=== PATIENT | male | born 1955 | race Hispanic/Latino ===

== ENCOUNTER 2017-08-23 12:17 | Emergency (ER) | payer OTHER ==
[2017-08-23 13:11] LABS: Absolute Lymphocytes (CBC) 1.7 K/uL (0.7-4.9); Absolute Monocytes 0.8 K/uL (0.1-1.3); Absolute Neutrophil 6.3 K/uL (1.8-8.0); Basophils % 0.8 % (0-1.3); Eosinophils % 0.4 % (0-4.4); Hematocrit 42.4 % (39.6-49.0); Lymphocytes % 19.1 % (15.3-44.8); MCH 30.8 pg (27.0-35.0); MCV 92.2 fL (80-100); Monocytes % 9.4 % (3.3-12.3); RBC Red Blood Cell Count 4.59 M/uL (4.33-5.43)
[2017-08-23 13:22] LABS: Potassium 3.2 mEq/L (3.6-5.0)
[2017-08-23 13:29] LABS: Albumin 4.5 g/dL (3.2-5.5); Bilirubin Direct 0.1 mg/dL (0-0.2); Bilirubin Total 0.7 mg/dL (0.3-1.2); Protein, Total 7.6 g/dL (6.0-8.3)
[2017-08-23 13:43] LABS: Protime INR 1.08
--- NOTE | 2017-08-23 14:29 | RAD REPORT ---
EXAM DESCRIPTION: RAD - Chest Single View - 08/23/2017 2:18 pm CLINICAL HISTORY: Chest pain. COMPARISON: 10/07/2015 FINDINGS: Portable technique limits examination quality. The lungs are grossly clear. The heart is normal in size. No displaced fractures. IMPRESSION: No acute intrathoracic process suspected.
--- NOTE | 2017-08-23 15:37 | EKG ---
Test Date: 2017-08-23 Test Time: 12:28:13 Video And Sound Recorder: ALANNAH MEASUREMENT RESULTS: Intervals: Rate: 112 AL: 134 QRSD: 72 QT: 316 QTc: 431 [place]: P: 47 AL: 134 QRS: -19 T: 52 INTERPRETIVE STATEMENTS: Sinus tachycardia Otherwise normal ECG Compared to ECG 10/07/2015 20:35:54 Sinus rhythm no longer present Electronically Signed On 08-23-17 15:36:56 CDT by Octavio Pearson
--- NOTE | 2017-08-23 16:29 | EDPHYS ---
Physician Documentation [facility] Name: Edilberto Zamorano Age: 61 yrs Sex: Male : 1955 Arrival Date: 08/23/2017 Time: 12:28 Bed 23 Private MD: ED Physician Ravinder Wang Historical: - Allergies: 08/23 12:35 No Known Allergies; ae1 - Home Meds: 12:35 hydrocodone-acetaminophen 10-325 mg Oral tab [Active]; Cymbalta Oral [Active]; Tramadol ae1 Oral [Active]; Lyrica Oral [Active]; unknown shizophrenia medication for sleep [Active]; unknown BP medication [Active]; Xanax Oral [Active]; - PMHx: 12:35 Back pain; Depression; Hyperlipidemia; Hypertension; ae1 - Immunization history:: Adult Immunizations not up to date. - Social history:: Smoking status: Patient uses tobacco products, smokes one-half pack cigarettes per day. Exam: 15:42 ECG was reviewed by the Attending Physician. Vital Signs: 12:32 BP 131 / 90; Pulse 117; Resp 25; Temp 98.4(O); Pulse Ox 96% on R/A; Weight 69.85 kg ae1 (R); Pain 7/10; 13:00 BP 123 / 78; Pulse 96; Resp 16; Pulse Ox 97% ; jl7 13:30 BP 124 / 77; Pulse 89; Resp 16; Pulse Ox 97% ; jl7 14:17 BP 127 / 77; Pulse 102; Resp 18; Pulse Ox 96% on R/A; aj1 15:24 BP 134 / 82; Pulse 87; Resp 16; Pulse Ox 97% on R/A; mb3 MDM: 12:53 Patient medically screened. 08/23 12:54 Order name: Basic Metabolic Panel; Complete Time: 14:05 08/23 12:54 Order name: CBC with Diff; Complete Time: 14:05 08/23 12:54 Order name: CPK; Complete Time: 14:05 08/23 12:54 Order name: LFT's; Complete Time: 14:05 08/23 12:54 Order name: Magnesium; Complete Time: 14:05 08/23 12:54 Order name: PT-INR; Complete Time: 14:05 08/23 12:54 Order name: Troponin (emerg Dept Use Only); Complete Time: 14:05 08/23 12:54 Order name: XRAY Chest (1 view); Complete Time: 16:27 08/23 12:54 Order name: EKG; Complete Time: 12:55 08/23 12:54 Order name: Cardiac monitoring; Complete Time: 12:58 08/23 12:54 Order name: EKG - Nurse/Tech; Complete Time: 12:58 08/23 12:54 Order name: IV Saline Lock; Complete Time: 12:58 08/23 12:54 Order name: Labs collected and sent; Complete Time: 12:58 08/23 14:16 Order name: Troponin (emerg Dept Use Only); Complete Time: 16:27 08/23 12:54 Order name: O2 Per Protocol; Complete Time: 12:58 08/23 12:54 Order name: O2 Sat Monitoring; Complete Time: 12:58 08/23 12:54 Order name: Urine Dipstick-Ancillary (obtain specimen) EC:42 Rate is 113 beats/min. Rhythm is regular, Sinus tachycardia. WA interval is normal. QRS gs interval is normal. T waves are Normal. No ST changes noted. Clinical impression: Abnormal EKG without significant change. Interpreted by me. Administered Medications: No medications were administered Disposition: 08/23/17 16:29 Discharged to Home. Impression: Chest pain, unspecified. - Condition is Stable. - Discharge Instructions: Nonspecific Chest Pain. - Medication Reconciliation Form, Thank You Letter, Antibiotic Education, Prescription Opioid Use form. - Follow up: Private Physician; When: 2 - 3 days; Reason: Re-evaluation by your physician. Follow up: Octavio Pearson MD; When: 2 - 3 days; Reason: Re-evaluation by your physician. - Problem is new. - Symptoms are resolved. Addendum: 08/29/2017 22:05 Addendum: CC: Chest Pain HPI: onset couple of days intermittent no pattern dull pain g s not SOB, very depressed not suicidal. Spouse recently . no reliving factors no associated signs or symptoms. PMH-reviewed Sohx: lives at home ROS- all reviewed and negative PE VS-reviewed and stale Gen no distress, non toxic Head_ normal no injury Eyes_ Piter EOMI ENT-mouth ears nl Neck-supple no masses CV-rrr no murmur P- clear breath sounds B/L normal work of breathing GI- soft nontender no mass MS- no deformity no pain Skin no breakdown no rash neuro - no acute changes psych- depressed flat affect not suicidal homocidal MDM DDX - ns chest pain, cad, pneumonia Pain resolved 2 trops negative will dc for followed. Signatures: Dispatcher [employer] EDHaja Slade, RN RN ae1 Ravinder Wang MD MD gs Javier Romo RN RN mb3 Corrections: (The following items were deleted from the chart) 08/23 16:47 16:29 08/23/2017 16:29 Discharged to Home. Impression: Chest pain, unspecified. mb3 Condition is Stable. Forms are Medication Reconciliation Form, Thank You Letter, Antibiotic Education, Prescription Opioid Use. Follow up: Private Physician; When: 2 - 3 days; Reason: Re-evaluation by your physician. Follow up: Octavio Pearson; When: 2 - 3 days; Reason: Re-evaluation by your physician. Problem is new. Symptoms are resolved.
--- NOTE | 2017-08-23 16:29 | ER ---
Nurse's Notes [facility] Name: Edilberto Zamorano Age: 61 yrs Sex: Male : 1955 Arrival Date: 08/23/2017 Time: 12:28 Bed 23 Private MD: Diagnosis: Chest pain, unspecified Presentation: 08/23 12:28 Presenting complaint: EMS states: EMS states patient has been c/o chest pain for "a ae1 couple of days". Patient states his last week. Patient reports midsternal chest pain 10/15, EMS administered 324 mg aspirin and 0.4 mg Nitroglycerin with small decrease in pain reported by patient. Transition of care: patient was not received from another setting of care. Onset of symptoms was August 21, 2017. Initial Sepsis Screen: Does the patient meet any 2 criteria? RR > 20 per min. HR > 90 bpm. Does the patient have a suspected source of infection? No. Patient's initial sepsis screen is negative. Care prior to arrival: Medication(s) given: ASA, 81 mg, x 4, Nitroglycerin, 0.4 mg SL IV initiated. 20 GA, in the left forearm. 12:28 Method Of Arrival: EMS: [facility] ae1 12:28 Acuity: JUSTYN 2 ae1 Historical: - Allergies: 12:35 No Known Allergies; ae1 - Home Meds: 12:35 hydrocodone-acetaminophen 10-325 mg Oral tab [Active]; Cymbalta Oral [Active]; Tramadol ae1 Oral [Active]; Lyrica Oral [Active]; unknown shizophrenia medication for sleep [Active]; unknown BP medication [Active]; Xanax Oral [Active]; - PMHx: 12:35 Back pain; Depression; Hyperlipidemia; Hypertension; ae1 - Immunization history:: Adult Immunizations not up to date. - Social history:: Smoking status: Patient uses tobacco products, smokes one-half pack cigarettes per day. Screenin:37 Abuse screen: Denies threats or abuse. Nutritional screening: No deficits noted. ae1 Tuberculosis screening: No symptoms or risk factors identified. Fall Risk None identified. Assessment: 12:36 General: Appears distressed, uncomfortable, Behavior is cooperative, anxious, crying, ae1 Patient appears emotional. . Pain: Pain radiates to thoracic area. Pain: Complains of pain in mid-sternal area Pain began gradually, 2-3 days ago. Neuro: Level of Consciousness is awake, alert, obeys commands, Patient can open eyes when asked to but keeps them closed. . Cardiovascular: Heart tones S1 S2 present Patient's skin is warm and dry. Respiratory: Airway is patent Respiratory effort is even, unlabored, Respiratory pattern is regular, symmetrical, Breath sounds are clear bilaterally. 14:17 Reassessment: Patient and/or family updated on plan of care and expected duration. Pain aj1 level reassessed. Patient is alert, oriented x 3, equal unlabored respirations, skin warm/dry/pink. Patient states that his chest pain has decreased since his arrival to the emergency room. General: Appears in no apparent distress. comfortable, Behavior is calm, cooperative. Neuro: Level of Consciousness is awake, alert, obeys commands, Oriented to person, place, time, situation, Speech is normal, Facial symmetry appears normal. Cardiovascular: Reports chest pain, Heart tones S1 S2 present Patient's skin is warm and dry. Respiratory: Airway is patent Respiratory effort is even, unlabored, Respiratory pattern is regular, symmetrical, Breath sounds are clear bilaterally. GI: No signs and/or symptoms were reported involving the gastrointestinal system. : No signs and/or symptoms were reported regarding the genitourinary system. EENT: No signs and/or symptoms were reported regarding the EENT system. Derm: No signs and/or symptoms reported regarding the dermatologic system. Skin is pink, warm \\T\\ dry. normal. Musculoskeletal: No signs and/or symptoms reported regarding the musculoskeletal system. Circulation, motion, and sensation intact. 15:25 Reassessment: Patient and/or family updated on plan of care and expected duration. Pain mb3 level reassessed. Patient is alert, oriented x 3, equal unlabored respirations, skin warm/dry/pink. Vital Signs: 12:32 BP 131 / 90; Pulse 117; Resp 25; Temp 98.4(O); Pulse Ox 96% on R/A; Weight 69.85 kg ae1 (R); Pain 7/10; 13:00 BP 123 / 78; Pulse 96; Resp 16; Pulse Ox 97% ; jl7 13:30 BP 124 / 77; Pulse 89; Resp 16; Pulse Ox 97% ; jl7 14:17 BP 127 / 77; Pulse 102; Resp 18; Pulse Ox 96% on R/A; aj1 15:24 BP 134 / 82; Pulse 87; Resp 16; Pulse Ox 97% on R/A; mb3 ED Course: 12:28 Patient arrived in ED. ae1 12:29 Ravinder Wang MD is Attending Physician. gs 12:32 Triage completed. ae1 12:33 Maintain EMS IV. Dressing intact. Good blood return noted. Site clean \\T\\ dry. Gauge \\T\\ ae 1 site: 20 Gauge left forearm. . Inserted saline lock: 18 gauge in right antecubital area, using aseptic technique. Blood collected. Patient maintains SpO2 saturation greater than 95% on room air. 12:35 Arm band placed on right wrist. EKG completed in triage. Results shown to MD. ae1 12:36 Placed in gown. Bed in low position. Call light in reach. Side rails up X2. Adult w/ ae1 patient. alarm security or surveillance monitor on. Pulse ox on. NIBP on. 12:42 EKG done, by electronics maintenance technician. reviewed by Ravinder Wang MD. 12:58 Haja Mariscal, RN is Primary Nurse. ae1 14:17 X-ray completed. Portable x-ray completed in exam room. Patient tolerated procedure mh1 well. 14:18 XRAY Chest (1 view) In Process Unspecified. EDTN 14:19 Report received from Carola Villavicencio RN. aj1 16:28 Octavio Pearson MD is Referral Physician. gs 16:42 IV discontinued, intact, bleeding controlled, No redness/swelling at site. Pressure mb3 dressing applied. 16:43 IV discontinued, intact, bleeding controlled, No redness/swelling at site. Pressure mb3 dressing applied. 16:43 No provider procedures requiring assistance completed. mb3 Administered Medications: No medications were administered Outcome: 16:29 Discharge ordered by MD. gs 16:44 Discharged to home ambulatory, with family. mb3 16:44 Condition: stable 16:44 Discharge instructions given to patient, family, Instructed on discharge instructions, follow up and referral plans. Demonstrated understanding of instructions, follow-up care. 16:47 Patient left the ED. mb3 Signatures: Dispatcher [employer] EDTN Marva Hill RN RN 1 Mendy Holt [facility] Kiki Shultz Haja Mariscal, RN RN ae1 Glenis Franklin, RN RN jl7 Ravinder Wang MD MD gs Javier Romo, MONICA RN mb3
[2017-08-23 16:51] VITALS: TEMP 98.4
[2017-08-23 16:55] VITALS: BP 134/82; O2SAT 97
== END 2017-08-23 16:47 | disposition home or self-care (01) ==
LOC: ER 12:17
DX: R07.9 Chest pain, unspecified (principal); E78.5 Hyperlipidemia, unspecified; I10 Essential (primary) hypertension; F32.9 Major depressive disorder, single episode, unspecified
CPT/HCPCS: 36415; 71045; 80048; 80076; 82550; 83735; 84484; 85025; 85610; 93005; 99285

== ENCOUNTER 2017-09-30 14:35 | Inpatient (IN) | payer OTHER ==
[2017-09-30 14:49] LABS: Absolute Lymphocytes (CBC) 1.7 K/uL (0.7-4.9); Absolute Monocytes 1.3 K/uL (0.1-1.3); Absolute Neutrophil 11.9 K/uL (1.8-8.0); Basophils % 0.4 % (0-1.3); Eosinophils % 0.9 % (0-4.4); Hematocrit 43.1 % (39.6-49.0); Lymphocytes % 11.3 % (15.3-44.8); MCH 30.9 pg (27.0-35.0); MCV 92.2 fL (80-100); MPV 10.8 fL (7.6-11.3); Monocytes % 8.4 % (3.3-12.3); RBC Red Blood Cell Count 4.67 M/uL (4.33-5.43)
[2017-09-30 14:55] LABS: Protime INR 1.13
[2017-09-30 15:02] LABS: Potassium 3.3 mmol/L (3.5-5.1)
--- NOTE | 2017-09-30 15:04 | RAD REPORT ---
EXAM DESCRIPTION: CT - Ct Stroke Brain Wo Cont - 09/30/2017 2:50 pm CLINICAL HISTORY: Confused;Slurred speech CVA COMPARISON: HEAD BRAIN W O CONTRAST dated 12/12/2013 TECHNIQUE: All CT scans are performed using dose optimization technique as appropriate and may inclu de automated exposure control or mA/KV adjustment according to patient size. FINDINGS: No intracranial hemorrhage, hydrocephalus or extra-axial fluid collection.No areas of brai n edema or evidence of midline shift. The paranasal sinuses and mastoids are clear. The calvarium is intact. IMPRESSION: No acute intracranial abnormality. The findings were discussed with ER physician Dr. Foley on 09/30/2017 at 2:40 p.m. by telephone.
[2017-09-30 15:06] LABS: Arterial Blood Carboxyhemoglob 1.6 % (0-1.5); Blood O2 Saturation 97.4 % (92-98.5)
--- NOTE | 2017-09-30 15:09 | RAD REPORT ---
EXAM DESCRIPTION: RAD - Chest Single View - 09/30/2017 2:49 pm CLINICAL HISTORY: CVA Chest pain. COMPARISON: Chest Single View dated 08/23/2017; Abdomen 1 View (KUB) dated 01/27/2016; Abdomen 1 View (KUB) dated 12/08/2015; Chest Single View dated 10/07/2015 FINDINGS: Portable technique limits examination quality. The lungs are grossly clear. The heart is normal in size. No displaced fractures. IMPRESSION: No acute intrathoracic process suspected.
--- NOTE | 2017-09-30 15:26 | EKG ---
Test Date: 2017-09-30 Test Time: 14:42:50 Radio Rigger: GUDELIA MEASUREMENT RESULTS: Intervals: Rate: 108 [place]: 144 QRSD: 84 QT: 398 QTc: 533 [place]: P: 57 [place]: 144 QRS: -4 T: 56 INTERPRETIVE STATEMENTS: Sinus tachycardia Nonspecific T wave abnormality Prolonged QT Abnormal ECG Compared to ECG 08/23/2017 12:28:13 T-wave abnormality now present Prolonged QT interval now present Electronically Signed On 09-30-17 15:25:16 CDT by Octavio Pearson
[2017-09-30 15:43] LABS: Alcohol Serum/Plasma < 3 mg/dL (0-3)
--- NOTE | 2017-09-30 16:45 | EDPHYS ---
Physician Documentation [facility] Name: Edilberto Zamorano Age: 62 yrs Sex: Male : 1955 Arrival Date: 09/30/2017 Time: 14:21 Bed 3 Private MD: ED Physician Ravinder Wang HPI: 09/30 14:23 This 62 yrs old Male presents to ER via Unassigned with complaints of S/S of gs Possible Stroke. 16:46 The patient's problem is reported as altered mental status, disoriented to place, time. gs Onset: The symptoms/episode began/occurred at an unknown time. last seen normal yest. 17:02 Duration: The episode is continuous. The symptoms are alleviated by nothing. The gs symptoms are aggravated by nothing. Associated signs and symptoms: Pertinent positives: confusion, Pertinent negatives: abdominal pain, fever. Unable to obtain HPI due to patient's speech is incomprehensible, patient's inability to understand questions. Historical: - Allergies: 14:50 No Known Allergies; sv - Home Meds: 15:40 Lyrica 300 mg Oral 2 times per day [Active]; tramadol 50 mg oral tab 1 tab every 6 sv hours [Active]; Xanax 1 mg oral tab TID prn [Active]; Protonix 40 mg Oral TbEC 1 tab once daily [Active]; duloxetine 60 mg oral cpDR 1 cap once daily [Active]; terazosin 10 mg oral cap 1 cap once daily [Active]; - PMHx: 14:50 Back pain; Depression; Hyperlipidemia; Hypertension; sv - Immunization history:: Adult Immunizations unknown. - Social history:: Smoking status: unknown. - Ebola Screening: : Unable to complete screening because patient is disoriented, . ROS: 17:02 All other systems are negative. gs Exam: 17:02 Head/Face: Normocephalic, atraumatic. Eyes: Pupils equal round and reactive to light, gs extra-ocular motions intact. Lids and lashes normal. Conjunctiva and sclera are non-icteric and not injected. Cornea within normal limits. Periorbital areas with no swelling, redness, or edema. ENT: Nares patent. No nasal discharge, no septal abnormalities noted. Tympanic membranes are normal and external auditory canals are clear. Oropharynx with no redness, swelling, or masses, exudates, or evidence of obstruction, uvula midline. Mucous membranes moist. Neck: Trachea midline, no thyromegaly or masses palpated, and no cervical lymphadenopathy. Supple, full range of motion without nuchal rigidity, or vertebral point tenderness. No Meningismus. Chest/axilla: Normal chest wall appearance and motion. Nontender with no deformity. No lesions are appreciated. 17:02 Constitutional: The patient appears awake. 17:02 Cardiovascular: Rate: tachycardic, Rhythm: regular, Pulses: no pulse deficits are appreciated. 17:02 ECG was reviewed by the Attending Physician. 17:02 Neuro: Orientation: Not oriented to place, time, situation, Cranial nerves: CN II- XII are normal as tested, Motor: moves all fours, Sensation: no acute changes. Vital Signs: 14:31 Pulse 113; Resp 24; Temp 97.0(TE); Pulse Ox 100% on R/A; Pain 0/10; ss 14:31 BP 126 / 83; ss 15:50 BP 125 / 72; Pulse 101; Resp 16; Pulse Ox 100% on 2 lpm NC; sv 16:38 BP 110 / 74; Pulse 100; Resp 16; Pulse Ox 100% on 2 lpm NC; sv 17:30 BP 117 / 73; Pulse 107; Resp 14; Pulse Ox 99% on 2 lpm NC; sv MDM: 14:25 Patient medically screened. 17:02 Differential diagnosis: CVA, TIA, metabolic disorder, drug effects. Data reviewed: vital signs, nurses notes. Response to treatment: the patient's symptoms have mildly improved after treatment, and as a result, I will admit patient. ED course: no tpa no time of onset, appears not to be a cva rather overdosage of medications filled on 09/27. 09/30 14:27 Order name: Basic Metabolic Panel; Complete Time: 15:25 09/30 14:27 Order name: CBC with Diff; Complete Time: : 09/30 14:27 Order name: Protime (+inr); Complete Time: 15:25 09/30 14:27 Order name: Urine Microscopic Only; Complete Time: 17:58 09/30 14:46 Order name: Acetaminophen; Complete Time: 17:58 09/30 14:46 Order name: ETOH Level; Complete Time: 17:58 09/30 14:22 Order name: CT Stroke Brain w/o Contrast; Complete Time: 15:25 sv 09/30 14:46 Order name: Salicylate; Complete Time: 17:58 gs 09/30 14:46 Order name: Urine Drug Screen; Complete Time: 17:58 gs 09/30 14:46 Order name: AMMONIA; Complete Time: 17:58 gs 09/30 14:46 Order name: ABG; Complete Time: 15:25 gs 09/30 14:47 Order name: glucometer results - FOR PT WITH NO ID; Complete Time: 15:25 ss 09/30 17:25 Order name: Urine Dipstick--Ancillary (enter results) bd 09/30 17:27 Order name: Urine Dipstick-Ancillary; Complete Time: 17:58 EDMS 09/30 14:27 Order name: Stroke CXR 1 View; Complete Time: 15:25 gs 09/30 14:27 Order name: EKG; Complete Time: 14:36 gs 09/30 14:27 Order name: Accucheck; Complete Time: 14:38 gs 09/30 14:27 Order name: Cardiac monitoring; Complete Time: 14:38 gs 09/30 14:27 Order name: EKG - Nurse/Tech; Complete Time: 16:46 gs 09/30 14:27 Order name: IV Saline Lock; Complete Time: 14:38 gs 09/30 14:27 Order name: Labs collected and sent; Complete Time: 14:38 gs 09/30 14:27 Order name: NPO; Complete Time: 14:38 gs 09/30 14:27 Order name: O2 Per Protocol; Complete Time: 14:38 09/30 14:27 Order name: O2 Sat Monitoring; Complete Time: 14:39 gs 09/30 14:27 Order name: Stroke Swallow Screen; Complete Time: 16:46 gs 09/30 14:27 Order name: Urine Dipstick-Ancillary (obtain specimen); Complete Time: 17:48 gs EC:02 Rate is 108 beats/min. Rhythm is regular. TN interval is normal. QRS interval is gs normal. QT interval is prolonged. T waves are Inverted. Clinical impression: NSR w/ Non-specific ST/T Changes. Interpreted by me. Administered Medications: No medications were administered Point of Care Testing: Blood Glucose: 14:30 Blood Glucose: 101 mg/dL; ss Ranges: Critical Glucose Levels:Adult <50 mg/dl or >400 mg/dl <40 mg/dl or >180 mg/dl Disposition: 09/30/17 16:44 Hospitalization ordered by Breonna Cabrera for Observation. Preliminary diagnosis are Altered mental status, unspecified, Adverse effect of other opioids. - Bed requested for Telemetry/MedSurg (observation). - Status is Observation. sv - Condition is Stable. - Problem is new. - Symptoms have improved. UTI on Admission? No Critical care time excluding procedures: 17:02 Critical care time: Bedside Care: 10 minutes, Consultation: 10 minutes, Family gs Intervention: 10 minutes. Total time: 30 minutes Signatures: Dispatcher [employer] EDMarlen Herrera RN RN sv Woody, Diana, RN RN dw Starr, Gregory, MD MD gs Corrections: (The following items were deleted from the chart) 14:50 14:50 Ebola Screening: Unable to complete screening because sv sv 17:55 16:44 Hospitalization Ordered by Breonna Cabrera MD for Observation. Preliminary diagnosis dw is Altered mental status, unspecified; Adverse effect of other opioids. Bed requested for Telemetry/MedSurg (observation). Status is Observation. Condition is Stable. Problem is new. Symptoms have improved. UTI on Admission? No. gs 17:56 17:55 09/30/2017 16:44 Hospitalization Ordered by Breonna Cabrera MD for Observation. dw Preliminary diagnosis is Altered mental status, unspecified; Adverse effect of other opioids. Bed requested for Telemetry/MedSurg (observation). Status is Observation. Condition is Stable. Problem is new. Symptoms have improved. UTI on Admission? No. dw 18:39 17:56 09/30/2017 16:44 Hospitalization Ordered by Breonna Cabrera MD for Observation. sv Preliminary diagnosis is Altered mental status, unspecified; Adverse effect of other opioids. Bed requested for Telemetry/MedSurg (observation). Status is Observation. Condition is Stable. Problem is new. Symptoms have improved. UTI on Admission? No. dw
--- NOTE | 2017-09-30 16:45 | ER ---
Nurse's Notes [facility] Name: Edilberto Zamorano Age: 62 yrs Sex: Male : 1955 Arrival Date: 09/30/2017 Time: 14:21 Bed 3 Private MD: Diagnosis: Altered mental status, unspecified;Adverse effect of other opioids Presentation: 09/30 14:15 Presenting complaint: EMS states: Slurred speech and was able to follow direction. Pt sv lives with daughter and daughter stated he was not acting himself yesterday morning. Daughter works retail shift supervisor and came home today around 1330 and pt was not acting right. BP 118/72 95% RA, BS-135, ST. NS 500 bolus and Narcan given with no change in mental status. Pt has thick secretions noted around his lips. Pn O2 \T\ 2L per NC. Transition of care: patient was not received from another setting of care. No acute neurological deficit is noted. The patients blood glucose was checked before arriving to the hospital and was found to be normal. Onset of symptoms is unknown. Care prior to arrival: None. 14:15 Method Of Arrival: EMS: [facility] sv 14:15 Acuity: JUSTYN 2 sv 14:30 Risk Assessment: Do you want to hurt yourself or someone else? Other: Pt agitated and sv yelling at staff at this time. 14:49 Initial Sepsis Screen: Does the patient meet any 2 criteria? RR > 20 per min. Altered sv Mental Status. HR > 90 bpm. Yes Does the patient have a suspected source of infection? No. Patient's initial sepsis screen is negative. Triage Assessment: 14:16 The onset of the patients symptoms was at an unknown time. General: Appears sv uncomfortable, Behavior is agitated, Pt starts yelling after a question is asked and appears to be agitated.. Pain: Unable to use pain scale. Does not appear to understand pain scale. Patient appears agitated, confused. Respiratory: Respiratory effort is even, unlabored, Respiratory pattern is regular, symmetrical. GI: Abdomen is round non-distended. Derm: Skin is normal. Musculoskeletal: Range of motion: intact in all extremities. Stroke Activation: Symptom onset > 6 hours Physician: Stroke Attending; Name: ; Notified At: 14:14; Arrived At: Physician: Chief Stroke Resident; Name: ; Notified At: 14:14; Arrived At: Physician: Stroke Resident; Name: ; Notified At: 14:14; Arrived At: Physician: ED Attending; Name: Dr Wang; Notified At: 14:14; Arrived At: 14:40 Physician: ED Resident; Name: ; Notified At: 14:14; Arrived At: Historical: - Allergies: 14:50 No Known Allergies; sv - Home Meds: 15:40 Lyrica 300 mg Oral 2 times per day [Active]; tramadol 50 mg oral tab 1 tab every 6 sv hours [Active]; Xanax 1 mg oral tab TID prn [Active]; Protonix 40 mg Oral TbEC 1 tab once daily [Active]; duloxetine 60 mg oral cpDR 1 cap once daily [Active]; terazosin 10 mg oral cap 1 cap once daily [Active]; - PMHx: 14:50 Back pain; Depression; Hyperlipidemia; Hypertension; sv - Immunization history:: Adult Immunizations unknown. - Social history:: Smoking status: unknown. - Ebola Screening: : Unable to complete screening because patient is disoriented, . Screenin:51 Abuse screen: Denies threats or abuse. Denies injuries from another. Nutritional sv screening: No deficits noted. Tuberculosis screening: No symptoms or risk factors identified. Fall Risk No fall in past 12 months (0 pts). Secondary diagnosis (15 points) AMS. IV access (20 points). Ambulatory Aid- None/Bed Rest/Nurse Assist (0 pts). Gait- Impaired (20 pts.). Mental Status- Overestimates/Forgets Limitations (15 pts.). Total Son Fall Scale indicates High Risk Score (45 or more points). Fall prevention measures have been instituted. Side Rails Up X 2 Placed Close to Nursing Station Frequent Obs/Assessments Occuring As available patient and family educated on Fall Prevention Program and Strategies. Assessment: 14:26 Reassessment: back from CT VIA stretcher. ss 14:30 Reassessment: Unable to do NIH scale. Pt not cooperative and agitated and yells at sv staff. 14:53 Patient has been NPO before screening. The patient is not alert and/or unable to follow sv commands. Bedside swallow screen discontinued. Patient kept NPO until cleared by Speech Therapy or Physician. The patient exhibits slurred or garbled speech. Provider notified of the indication for Speech Therapy consult. The patient failed the bedside swallow screening. The patient will be kept NPO until cleared by Speech Therapy or Physician. Provider notified of bedside swallow screening results: Ravinder Wang MD. 14:56 Reassessment: Gayla CUETO at bedside to obtain ABG. sv 15:00 Reassessment: Patient appears in no apparent distress at this time. No changes from sv previously documented assessment. 15:41 Reassessment: Pt's daughter and son are here at bedside and brought pt's prescription sv bottles. Pt just had Tramadol 50 mg filled on 09/27/17, quantity 150 and there are 49 pills in the bottle. Pt also had Xanax 1 mg filled on 09/27/17, quantity 90 and there are 30 pills in the bottle. Pills were counted in front of daughter and son and given back to the daughter and informed if they are to leave to take the pill bottles home with them. Daughter stated that he's had a suicide attempt over 20 years ago when his sister was murdered. Pt recently had his pass away about a month ago. Son also stated that there is a son-in-law that they are unsure if he's been taking the pt's prescription medications as well. 16:39 Reassessment: Patient appears in no apparent distress at this time. No changes from sv previously documented assessment. Pt appears to be resting with eyes closed. Family at the bedside. Respiratory: Respiratory effort is even, unlabored, Respiratory pattern is regular, symmetrical. 18:07 Reassessment: Nurse to call back for report. sv 18:10 Reassessment: Patient appears in no apparent distress at this time. No changes from sv previously documented assessment. Vital Signs: 14:31 Pulse 113; Resp 24; Temp 97.0(TE); Pulse Ox 100% on R/A; Pain 0/10; ss 14:31 BP 126 / 83; ss 15:50 BP 125 / 72; Pulse 101; Resp 16; Pulse Ox 100% on 2 lpm NC; sv 16:38 BP 110 / 74; Pulse 100; Resp 16; Pulse Ox 100% on 2 lpm NC; sv 17:30 BP 117 / 73; Pulse 107; Resp 14; Pulse Ox 99% on 2 lpm NC; sv ED Course: 14:15 Maintain EMS IV. Dressing intact. Good blood return noted. Site clean \T\ dry. Gauge \T\ sv site: 20G L AC. 14:[address] via stretcher. sv 14:21 Patient arrived in ED. sv 14:22 Marlen Vasquez RN is Primary Nurse. sv 14:23 Ravinder Wang MD is Attending Physician. gs 14:28 Patient moved back from CT. sv 14:39 Initial lab(s) drawn, by me, sent to lab. sv 14:47 EKG done, by hearing aid technician. reviewed by Ravinder Wang MD. sm3 14:49 Triage completed. sv 14:50 Stroke CXR 1 View In Process Unspecified. EDMS 14:50 CT Stroke Brain w/o Contrast In Process Unspecified. EDMS 14:50 Arm band placed on left wrist. sv 14:51 Patient has correct armband on for positive identification. Placed in gown. Bed in low sv position. Side rails up X2. residential monitor on. Pulse ox on. NIBP on. Door closed. Head of bed elevated. 16:43 Breonna Cabrera MD is Hospitalizing Provider. gs 17:47 Urine Dipstick--Ancillary (enter results) Sent. sv 18:29 No provider procedures requiring assistance completed. Patient admitted, IV remains in sv place. intact. Administered Medications: No medications were administered Point of Care Testing: Blood Glucose: 14:30 Blood Glucose: 101 mg/dL; Ranges: Outcome: 16:44 Decision to Hospitalize by Provider. gs 18:29 Admitted to Tele accompanied by tech, family with patient, via stretcher, room 201, sv with oxygen, with chart, Report called to Polo ANDERSON 18:29 Condition: stable 18:29 Instructed on the need for admit. 18:39 Patient left the ED. sv Signatures: Dispatcher [employer] EDMS Marlen Vasquez RN RN Treasure Gonzalez RN RN Ravinder Wang MD MD Jessika Conley 3 Corrections: (The following items were deleted from the chart) 14:50 14:50 Ebola Screening: Unable to complete screening because sv sv
[2017-09-30 17:27] LABS: Urine Blood NEGATIVE (NEG); Urine Glucose NEGATIVE (NEG); Urine Protein 1+ (NEG); Urine Specific Gravity >1.030 (1.005-1.030); Urine pH 5.5 (5.0-7.0)
[2017-09-30 17:31] LABS: Urine RBC NONE SEEN /HPF (NONE SEEN)
[2017-09-30 17:32] LABS: Urine Amorphous Sediment 2+ /HPF (NONE SEEN); Urine Bacteria 20-50 /HPF (NONE SEEN); Urine Culture Reflex Order REFLEXED
[2017-09-30 17:44] LABS: Barbiturates NEGATIVE (NEGATIVE); Benzodiazepines POSITIVE (NEGATIVE); Cocaine NEGATIVE (NEGATIVE); METHAMPHETAM NEGATIVE (NEGATIVE); Methadone NEGATIVE (NEGATIVE); Opiates NEGATIVE (NEGATIVE); Phencyclidine POSITIVE (NEGATIVE); THC Cannibis NEGATIVE (NEGATIVE)
[2017-09-30] MEDS: D5.45NS W/KCL 20MEQ 1,000 ML IV SCH (19:52)
[2017-09-30] MEDS: CEFTRIAXONE/SWI 1gm 1 GM/10 ML SYR IVP SCH (19:53)
[2017-09-30] MEDS: ENOXAPARIN 40 MG/0.4 ML SQ SCH (19:53)
[2017-09-30] MEDS: FAMOTIDINE 20 MG/2 ML VIAL IV SCH (19:53)
--- NOTE | 2017-09-30 20:50 | RAD REPORT ---
EXAM DESCRIPTION: MRI - Brain W/Wo Cont - 09/30/2017 8:40 pm CLINICAL HISTORY: Acute stroke COMPARISON: Ct Stroke Brain Wo Cont dated 09/30/2017 TECHNIQUE: Multi-sequence, multiplanar MR imaging of the brain was performed with contrast. FINDINGS: No intracranial hemorrhage, hydrocephalus, extra-axial fluid collection or acute infarctio n.No edema or shift of midline structures. No intracranial mass. DWI is negative for acute CVA. The midline structures are normally formed. Mastoid air cells and paranasal sinuses are clear. Post-contrast images show no abnormal enhancement to suggest tumor or infection. IMPRESSION: Negative for acute CVA or other acute intracranial abnormality. No pathologic post-contrast enhancement suspected.
[2017-10-01] MEDS: D5.45NS W/KCL 20MEQ 1,000 ML IV SCH ×4 (04:00→23:07)
[2017-10-01 05:21] LABS: Absolute Lymphocytes (CBC) 2.1 K/uL (0.7-4.9); Absolute Monocytes 1.1 K/uL (0.1-1.3); Absolute Neutrophil 7.4 K/uL (1.8-8.0); Basophils % 1.3 % (0-1.3); Eosinophils % 2.5 % (0-4.4); Hematocrit 40.8 % (39.6-49.0); Lymphocytes % 19.3 % (15.3-44.8); MCH 30.6 pg (27.0-35.0); MCV 94.7 fL (80-100); MPV 11.3 fL (7.6-11.3); RBC Red Blood Cell Count 4.31 M/uL (4.33-5.43)
--- NOTE | 2017-10-01 05:39 | HP ---
Date of Admission: 09/30/2017 Primary Care Physician: Da Amaya PA-C. Chief Complaint: Altered mental status. Code Status: Full. History Of Present Illness: The patient is a 62-year-old male with past medical history of depressio n, generalized anxiety disorder, gastroesophageal reflux disease and benign prostatic hyperplasia, wh o has been through some family difficulties given recent of his daughter and his in the [place] few months. The patient's daughter last year and in August. The patien t has been depressed according to the family members, daughter, 1 daughter who does stay with him; saqib palacios, works and is not always there. He was last known to be in his usual state of health on Saturd ay night, just 2 nights prior to admission. The patient was not awake and outside of his room this m orning when the daughter returned from [place] fishing hand. When she checked on her father, the patient was somnolent, not really responsive. His speech was slurred. It was not making much sense. He was not really able to get up and was weak. The patient's daughter therefore called EMS and the patient was brought into the ER for further evaluation. His symptoms are constant, moderate and progressively w orsening. Of note, the patient has been taking benzodiazepines, alprazolam, and it was noted that hi s pill bottle was missing, over 30 pills from the day before. The patient also is on tramadol and easley d 150 pills in that bottle and more than 20 were missing from that bottle as well. The patient has b een somnolent and in the ER his workup revealed potassium of 3.3. His white count was 15.1. His amm onia level was low. His UA, however, was positive and UDS was positive for phencyclidine and benzodi azepine. Tylenol level was less than 2. Alcohol level was also less than 3. CT scan of the brain d id not show any acute abnormalities. The patient was then referred for admission for altered mental status. When seen in the ER, the patient was asleep, but arousable, not able to participate in histo ry taking, so the history is taken from family members, previous records and ER staff physician. Past Medical History: Gastroesophageal reflux disease, generalized anxiety disorder, major depressiv e disorder, chronic back pain, hyperlipidemia, hypertension. Past Surgical History: Unknown. Social History: The patient has smoked in the past. No use of alcohol or illicit drug use. The pat butch recently lost his and lost his daughter about a year ago. The patient is independent in hi s activities of daily living. Lives at home with his other daughter. Allergies: NO KNOWN DRUG ALLERGIES. Medications: Reviewed. Family History: No history of premature coronary artery disease in the family. Review of Systems: An 11-point system limited due to the patient's medical condition. Physical Examination: Vital signs: Pulse 113, respirations 24, temperature 97, O2 100% on room air, blood pressure 126/83. General: Asleep, but arousable, confused. HEENT: Normocephalic, atraumatic. PERRLA. EOMI. Dry mucous membranes. Oropharynx is clear. Conju nctiva is anicteric. Neck: Supple. No JVD. Trachea midline. CV: S1, S2. No murmurs. Regular rate and rhythm. Peripheral pulses present. Respiratory: Moving air well bilaterally. No wheezing. No stridor. No use of accessory muscles. Gastrointestinal: Abdomen is soft, nontender, nondistended. Positive bowel sounds. No guarding or rigidity. Extremities: No clubbing, cyanosis or edema. No calf tenderness. Neurologic: Unable to properly assess due to patient's medical condition; however, he moves all 4 ex tremities. Opens eyes to name. Speech is incomprehensible. Skin: No rashes. Normal skin turgor. Psych: Deferred. Laboratory Data: UDS positive for phencyclidine and benzodiazepine. Tylenol level less than 2. UA negative nitrite, negative leukocyte esterase, WBC 5-10, 20-50 urine bacteria. Sodium 139, potassium 3.3, chloride 107, CO2 27, BUN 20, creatinine 1.2, glucose 109, calcium 8.7, ammonia 14. ABG; pH 7. 43, pCO2 37.8, pO2 93, bicarb 24.6, INR 1.13. WBC 15.1, H and H 14.4 and 43.1, platelets 194, neutro phils 79%. CT scan of the brain shows no acute intracranial abnormality. Chest x-ray shows no acute intrathorac ic process suspected, personally reviewed. EKG shows rate of 108, sinus tachycardia. Nonspecific T- wave abnormality, prolonged QT. Assessment And Plan: A 62-year-old male with, 1.Acute metabolic encephalopathy, likely related to drug overdose, doubt cerebrovascular accident. Head CT scan is negative. The patient has multiple pills missing. We will monitor closely. Neuro c hecks. 2.Drug overdose, unclear if this is intentional or unintentional. We will monitor closely. Neuro c hecks. We will place on pulse ox, continuous pulse ox. 3.Urinary tract infection, acute cystitis without hematuria. We will start on IV antibiotics and ob tain urine culture. 4.Hypokalemia. We will replace and monitor. 5.Essential hypertension. 6.Hyperlipidemia. 7.Benign prostatic hyperplasia, we will resume home medication. 8.Generalized anxiety disorder, we will hold benzodiazepines for now. 9.Major depressive disorder, on SSRI. 10.Gastroesophageal reflux disease without esophagitis. Continue PPI. 11.Gastrointestinal and deep venous thrombosis prophylaxis with PPI and Lovenox. Plan: Admit the patient to Med-Surg, place for observation. May need psych referral. FRANCA Voice ID: [id number]
[2017-10-01] MEDS ORDERED: NA CHLORIDE 0.9% 1,000 ML IV ONE (05:43)
[2017-10-01 05:49] LABS: Bilirubin Total 0.3 mg/dL (0.2-1.0); Potassium 3.6 mmol/L (3.5-5.1); Protein, Total 6.2 g/dL (6.4-8.2)
[2017-10-01] MEDS: ASPIRIN EC 81 MG TAB PO SCH (08:33)
[2017-10-01] MEDS: ENOXAPARIN 40 MG/0.4 ML SQ SCH (08:33)
[2017-10-01] MEDS: CEFTRIAXONE/SWI 1gm 1 GM/10 ML SYR IVP SCH (08:33)
[2017-10-01] MEDS: FAMOTIDINE 20 MG/2 ML VIAL IV SCH ×2 (08:33→20:09)
--- NOTE | 2017-10-01 17:51 | PN ---
Date of Progress Note: 10/01/2017 Subjective: The patient seen and examined, chart reviewed and case discussed with RN. The patient i s still very much lethargic. There is some history of previous suicide attempt with medications, the refore will be placed on suicide precautions. Family at the bedside treatment plan explained. All q uestions answered. Review of Systems: Unable to be obtained due to the patient's medical condition. Medications: Reviewed Objective: Vital Signs: Temperature 97, heart rate 95, blood pressure 118/61, respirations 17, and O2 saturation 99% on room air. General: Asleep, but arousable, in some mild distress, confused male. CV: S1, S2. No murmurs. Regular rate and rhythm. Peripheral pulses present. Respiratory: Clear to auscultation bilaterally. No wheezing. No stridor. No use of accessory musc les Gastrointestinal: Abdomen is soft, nontender, nondistended. Positive bowel sounds. Extremities: No clubbing, cyanosis, edema. Neuro: Moves all 4 extremities. Opens eyes spontaneously. Does not follow commands. Laboratory Data: Sodium 140, potassium 3.6, chloride 108, CO2 28, BUN 17, creatinine 0.9, glucose 12 1, calcium 8.5, AST 127, ALT 46, and albumin 3. WBC 11, H and H 13.2, 40.8, platelets 169, and neutr ophils 56%. Urine culture, no growth. Blood cultures are pending. MRI brain shows negative for acu te CVA or other acute intracranial abnormality. Assessment And Plan: A 62-year-old male with; 1.Acute metabolic encephalopathy, likely related to drug overdose. MRI brain negative for cerebrova scular accident. Neurology has been consulted. EEG will be ordered. 2.Drug overdose, possibly intentional. We will place on suicide precautions and have sitter at the bedside. 3.Urinary tract infection, acute cystitis without hematuria. The patient is on Rocephin. Urine cul tures so far shows no growth. 4.Hypokalemia. We will replace and monitor. 5.Essential hypertension, stable. 6.Hyperlipidemia, mixed. 7.Benign prostatic hypertrophy. The patient did have some obstructive uropathy. Catheter has been placed. The patient is not safe to swallow pills, therefore, his tamsulosin is on hold. 8.Generalized anxiety disorder. Hold benzodiazepine. 9.Major depressive disorder, on SSRI. 10.Gastroesophageal reflux disease without esophagitis. Continue IV PPI. 11.Gastrointestinal and deep venous thrombosis prophylaxis with PPI and Lovenox. Plan: Follow up with neuro eval and recommendations. If continues to have altered mentation, may ne ed to have NG-tube placed tomorrow for initiating nutrition. SA/MODL Voice ID: [id number] Report ID: [id number]
[2017-10-01 19:51] VITALS: BMI 25.0
[2017-10-01] MEDS: ONDANSETRON 4 MG/2 ML VIAL IV PRN (20:50)
[2017-10-01] MEDS ORDERED: THIAMINE 200 MG/2 ML INJ IVP ONE (21:00)
--- NOTE | 2017-10-02 02:01 | CON ---
Reason: Altered mental status. History: A 62-year-old gentleman with history of depression, reflux. The patient is depressed and h is daughter and within the last year. He was found to be confused with empty bottle/pills missing from bottles. At his home, drug screen positive for PCP and benzodiazepines. White count in the emergency room 15,000. He was admitted for evaluation and stabilization since being admitted. Brain MRI, no evidence for stroke. EEG does demonstrate some occasional right focal slowing. The pa tient is improving. He is waking up currently. He is still confused but arousable and can follow si mple one-step commands. Consultation was requested. Past Medical History: As alluded to. Medications: Currently aspirin, ceftriaxone, Lovenox, Zofran, and famotidine. Allergies: NONE. Social History: The patient lives with family. Normally independent with basic activities of daily living. He is on antidepressants normally chronically. Review of Systems: As alluded to. Not properly obtainable from the patient. Physical Examination: Vital Signs: 98.7, 111, 16, 125/83. General: Somnolent gentleman lying in bed, arousable to verbal as well as tactile stimuli. HEENT: Pupils reactive. Does have some nystagmus on lateral gaze, but ocular motion is full. Field s are full to threat. Face is symmetric. Neck: Supple. Extremities: He moves all extremities to painful stimuli. Reflexes are 2/4. Toes are bilaterally d owngoing. Pertinent Laboratory Data: White count 11, hemoglobin 13, platelets normal. Renal function normal. Glucose 121. Drug screen positive PCP and benzodiazepines. Impression: Drug overdose, possible suicide attempt. Plan: Add IV thiamine. Continue general supportive care. We will need to evaluate for the possibil ity of suicide attempt when the patient is little more coherent. Thank you for the consult. We will continue to follow. OSEI/IRVIN Voice ID: [id number] Report ID: [id number]
[2017-10-02 05:26] LABS: Absolute Lymphocytes (CBC) 1.7 K/uL (0.7-4.9); Absolute Monocytes 1.2 K/uL (0.1-1.3); Absolute Neutrophil 7.6 K/uL (1.8-8.0); Basophils % 0.6 % (0-1.3); Eosinophils % 2.3 % (0-4.4); Hematocrit 37.5 % (39.6-49.0); MCV 93.7 fL (80-100); MPV 11.2 fL (7.6-11.3); Monocytes % 10.9 % (3.3-12.3)
[2017-10-02 05:48] LABS: Albumin 2.9 g/dL (3.4-5.0); Bilirubin Total 0.4 mg/dL (0.2-1.0); Potassium 3.3 mmol/L (3.5-5.1); Protein, Total 6.2 g/dL (6.4-8.2)
[2017-10-02] MEDS: KCL 20 MEQ/100 mL IVPB 20 MEQ/100 ML BAG IV SCH ×4 (06:21→22:10)
[2017-10-02] MEDS: ASPIRIN EC 81 MG TAB PO SCH (09:00)
[2017-10-02] MEDS: CEFTRIAXONE/SWI 1gm 1 GM/10 ML SYR IVP SCH (09:00)
[2017-10-02] MEDS: THIAMINE 200 MG/2 ML INJ IVP SCH (09:15)
[2017-10-02] MEDS: FAMOTIDINE 20 MG/2 ML VIAL IV SCH (09:16)
[2017-10-02] MEDS: ENOXAPARIN 40 MG/0.4 ML SQ SCH (09:16)
--- NOTE | 2017-10-02 09:49 | EEG ---
CHART: [id number] TEST ID#: [id number] DATE OF STUDY: 10/01/2017 THE EEG WAS RECORDED PORTABLE IN THE PATIENTS ROOM ON A 17 CHANNEL MACHINE. ELECTRODES WERE APPLIED IN THE USUAL MANNER USING THE INTERNATIONAL 10-20 SYSTEM. THE WAKING BACKGROUND RHYTHM IN THIS RECORD CONSISTS OF POORLY DEVELOPED AND POORLY ORGANIZED WAVES OF 8 HZ., MAXIMAL IN THE POSTERIOR HEAD REGIONS WHICH ATTENUATE NORMALLY WITH EYE OPENING. OCCASIONAL MODERATE AMPLITUDE SLOW WAVES OF 3-4 HZ ARE NOTED ON THE RIGHT, MAXIMAL IN THE TEMPORAL OCCIPITAL REGION. NO EPILEPTIFORM ACTIVITY APPEARS. SLEEP DID NOT OCCUR. HYPERVENTILATION WAS NOT PERFORMED. PHOTIC STIMULATION PRODUCED POOR DRIVING BILATERALLY. IMPRESSION: ABNORMAL EEG BECAUSE OF OCCASIONAL RIGHT FOCAL SLOWING. THE ABOVE SUGGESTS FOCAL PATHOLOGY/ DYSFUCTION ON THE RIGHT. FURTHER STUDIES TO EVALUATE THE RIGHT HEMISPHERE ARE SUGGESTED CLINICALLY INDICATED.
[2017-10-02] MEDS: D5.45NS W/KCL 20MEQ 1,000 ML IV SCH (10:00)
[2017-10-02] MEDS ORDERED: TERAZOSIN HCL 5 MG CAP PO SCH (14:00)
[2017-10-02] MEDS: PANTOPRAZOLE 40MG TABLET PO SCH (14:00)
--- NOTE | 2017-10-02 14:43 | PN ---
Date of Progress Note: 10/02/2017 Subjective: The patient is seen and examined. Chart reviewed and case discussed with RN and Dr. Hyacinth pedroza. The patient much more awake and alert today, following commands, answering questions appropriate ly. Son at the bedside. The patient not responding to questions regarding intentional overdose of m edications. He does admit to being depressed. Review of Systems: Negative except as above. Medications: Reviewed. Physical Examination: Vital Signs: Temperature 98.9, heart rate 118, blood pressure 129/65, respirations 18, O2 94% on chin m air. General: Awake, alert, oriented x3. Some mild distress. CV: S1, S2. Sinus tachycardia. No murmurs. Peripheral pulses present. Respiratory: Clear to auscultation bilaterally. No wheezing. Gastrointestinal: Abdomen is soft, nontender, nondistended. Positive bowel sounds. Extremities: No clubbing, cyanosis, or edema. Neurologic: Nonfocal. Psych: Mood is depressed. Affect is congruent with mood. Insight and judgment are poor. Laboratory Data: Sodium 140, potassium 3.3, chloride 106, CO2 25, BUN 8, creatinine 0.9, glucose 91, calcium 8.3. AST 110, ALT 45, albumin 2.9. WBC 10.9, H and H 12.4 and 37.5, platelets 162. Blood cultures, no growth to date. Urine culture shows no growth. Assessment And Plan: A 62-year-old male with: 1.Acute metabolic encephalopathy, likely related to drug overdose. Cerebrovascular accident ruled o ut with MRI. Appreciate Dr. Adorno's input. EEG was performed, shows abnormal EEG because of occasio nal right focal slowing, focal pathology dysfunction on the right. 2.Drug overdose, likely intentional. The patient has had previous history of drug overdose. Stephania ruiz on suicide precautions. We will obtain [facility] evaluation. Continue sitter at the bedside. 3.Hypokalemia. We will replace and monitor. 4.Urinary tract infection, acute cystitis without hematuria. The patient was treated with Rocephin. Urine culture shows no growth. We will discontinue antibiotics. 5.Essential hypertension, stable. 6.Benign prostatic hypertrophy with obstructive uropathy. Catheter is in place. We will continue t amsulosin. 7.Hyperlipidemia, mixed. 8.Essential hypertension, stable. 9.Generalized anxiety disorder. We will hold benzodiazepines. 10.Major depressive disorder, on SSRI. 11.Gastroesophageal reflux disease without esophagitis. Continue PPI. 12.Gastrointestinal and deep venous thrombosis prophylaxis with PPI and Lovenox. Plan: Bedside swallow screening. We will initiate diet, replace potassium. The patient will need a voiding trial prior to discharge and Lynn catheter to be removed. [facility] evaluation in the next 24 h ours for possible inpatient psych placement. /IRVIN Voice ID: [id number] Report ID: [id number]
[2017-10-02] MEDS ORDERED: HALOPERIDOL LACT 5 MG/ML INJ IV PRN (16:25)
[2017-10-02] MEDS ORDERED: DIPHENHYDRAMINE 50 MG/ML VIAL IV ONE (17:00)
[2017-10-02] MEDS: ACETAMINOPHEN 500 MG TAB PO PRN (19:53)
[2017-10-02] MEDS ORDERED: RANITIDINE 150 MG TABLET PO SCH (21:00)
[2017-10-03] MEDS: D5.45NS W/KCL 20MEQ 1,000 ML IV SCH ×2 (01:28→01:29)
[2017-10-03] MEDS: ONDANSETRON 4 MG/2 ML VIAL IV PRN (02:57)
[2017-10-03 03:09] LABS: ALT/SGPT 43 U/L (12-78); AST/SGOT 78 U/L (15-37); Albumin 2.9 g/dL (3.4-5.0); Alkaline Phosphatase 90 U/L (45-117); BUN Blood Urea Nitrogen 4 mg/dL (7-18); Bicarbonate 26 mmol/L (21-32); Bilirubin Total 0.5 mg/dL (0.2-1.0); Glucose Level 116 mg/dL (74-106); Potassium 3.6 mmol/L (3.5-5.1); Protein, Total 6.3 g/dL (6.4-8.2); Sodium Level 141 mmol/L (136-145)
[2017-10-03] MEDS: ACETAMINOPHEN 500 MG TAB PO PRN ×2 (03:11→11:04)
[2017-10-03] MEDS ORDERED: KCL 20 MEQ/100 mL IVPB 20 MEQ/100 ML BAG IV SCH (04:00)
--- NOTE | 2017-10-03 07:28 | RAD REPORT ---
EXAM DESCRIPTION: ESTEVAN Rolle CP - 10/02/2017 10:06 pm CLINICAL HISTORY: Transient alteration of awareness. Bruit COMPARISON: December 2013 TECHNIQUE: Real-time sonographic evaluation of both carotid systems was performed. Grayscale and dup apolonia Doppler interrogation was performed with waveform tracing bilaterally. FINDINGS: Normal high resistance waveforms are noted in both external carotid arteries. The common c arotid arteries and internal carotid arteries show normal low resistance waveforms. A small focal calcified plaque is present in the left carotid bulb. No significant luminal narrowing. Peak systolic and end diastolic velocity values and the ICA/CCA ratios are in the non-hemodynamicall y significant range. Common carotid peak systolic velocity was 71 cm/seconds on the right and 73 cm/s econd on the left. ICA velocities range from 51-68 cm/second on the right and 60-73 cm/second on the left. End-diastolic velocity values were normal range. ICA/CCA ratios were 0.9 on the right and 1.0 o n the left. Antegrade flow seen in both vertebral arteries. Velocity values and ratios were recorded and are retained in the patient's imaging records. IMPRESSION: No significant atherosclerotic changes noted. No evidence of a hemodynamically significant stenosis.
[2017-10-03] MEDS: ENOXAPARIN 40 MG/0.4 ML SQ SCH (08:00)
[2017-10-03] MEDS: PANTOPRAZOLE 40MG TABLET PO SCH (08:01)
[2017-10-03] MEDS: ASPIRIN EC 81 MG TAB PO SCH (08:01)
[2017-10-03] MEDS: THIAMINE 200 MG/2 ML INJ IVP SCH (08:02)
[2017-10-03] MEDS ORDERED: HALOPERIDOL LACT 5 MG/ML INJ IV PRN (08:26)
[2017-10-03 08:49] VITALS: O2SAT 97
[2017-10-03] MEDS ORDERED: TERAZOSIN HCL 5 MG CAP PO SCH (09:00)
--- NOTE | 2017-10-03 11:04 | PN ---
Date of Progress Note: 10/03/2017 Subjective: The patient is seen and examined. Chart reviewed and case discussed with RN. The patie nt now is awake and alert. Has been somewhat combative yesterday, thinking to leave; however, has ri sk of self-harm and needs to be transferred to inpatient psych facility. Son at the bedside. The ricardo schwartz's Lynn catheter removed today; however, still has not voided. He has not ate much of his meal s. Review of Systems: Negative except as above. Medications: Reviewed. Physical Examination: Vital Signs: Temperature 97.2, heart rate 108, blood pressure 114/59, respirations 16, O2 94% on chin m air. General: Awake, alert, or oriented x3, not in any acute distress. CV: S1, S2. Sinus tachycardia. No murmurs. Peripheral pulses present. Respiratory: Clear to auscultation bilaterally. No wheezing. Gastrointestinal: Abdomen is soft, nontender, nondistended. Positive bowel sounds. Extremities: No clubbing, cyanosis, edema. Neurologic: Nonfocal. Psych: Mood is dysphoric. Affect is congruent with mood. Insight and judgment are poor. Laboratory Data: Sodium 141, potassium 3.6, chloride 106, CO2 26, BUN 4, creatinine 0.8, glucose 116 , calcium 8.7. AST 78, ALT 43, and albumin 2.9. WBC 10.9, H and H 12.4 and 37.5, platelets 162, tom trophils 70%. Carotid artery ultrasound shows no significant atherosclerotic changes noted. No evid ence of hemodynamically significant stenosis. Assessment And Plan: A 62-year-old male with: 1.Acute metabolic encephalopathy, resolved. Cerebrovascular accident ruled out. Appreciate Dr. Hyacinth pedroza's input. 2.Intentional drug overdose. The patient is at high risk for self-harm, [facility]. 3.Hypokalemia, replace. Continue to monitor. 4.Urinary tract infection, acute cystitis without hematuria. Urine culture showed no growth. Antib iotics were discontinued. 5.Essential hypertension, stable. 6.Benign prostatic hypertrophy with obstructive uropathy. Catheter has been removed. We will do a voiding trial. Continue tamsulosin. 7.Hyperlipidemia, mixed. 8.Essential cerebrovascular accident. 9.Generalized anxiety disorder. Benzodiazepine has been on hold. 10.Major depressive disorder. The patient is suicidal. 11.Gastroesophageal reflux disease without esophagitis. We will continue PPI. 12.Gastrointestinal and deep venous thrombosis prophylaxis with PPI and Lovenox. Plan: Discharge to inpatient psych facility once accepted. FRANCA Voice ID: [id number] Report ID: [id number]
[2017-10-03 12:24] VITALS: BP 113/61; TEMP 98.1
--- NOTE | 2017-10-04 02:33 | DS ---
Date of Discharge: 10/03/2017 Consultants: Dr. Adorno with Neurology. Discharge Diagnoses: 1.Acute metabolic encephalopathy secondary to drug overdose, resolved. 2.Intentional drug overdose with benzodiazepine, PCP, possibly tramadol, being referred to inpatient psychiatric facility for suicidal ideation. 3.Suicidal ideation and attempt. 4.Hypokalemia, replaced. 5.Urinary tract infection, acute cystitis without hematuria. Urine culture no growth. 6.Essential hypertension, stable. 7.Benign prostatic hyperplasia with obstructive uropathy, improved with tamsulosin. The patient abl e to tolerate voiding trial. 8.Hyperlipidemia, stable. 9.Generalized anxiety disorder. 10.Major depressive disorder. 11.Gastroesophageal reflux disease without esophagitis. Hospital Course: The patient is a 62-year-old male who came in with altered mental status. He torrey frank had taken overdose of his medications including benzodiazepines and his UDS was positive for P CP. The patient was worked up for possible CVA and MRI was done which was negative. CT head was als o negative. Dr. Adorno with Neurology was consulted. EEG was done, which showed some slowing on the right side. The patient eventually started waking up on the second day of admission. He was then fo und to have high risk for self-harm as this was his second suicide attempt due to depression. The pa tiejustin had recently lost his daughter and now his about a month ago. Carotid ultrasound was also done, which was negative for any hemodynamically significant stenosis. He did have some mild hypoka lemia, which was replaced. He had an elevated white count and equivocal UA with 20-50 bacteria, 5-10 WBCs, but negative nitrite and leukocyte esterase. He was given Rocephin initially. However, once the urine culture showed no growth, antibiotics were discontinued. He did have some mild elevation i n his liver enzymes, likely due to fatty liver disease. His white count normalized. He was then mor e awake and alert. His mental status cleared. He was then referred to inpatient psychiatric facilit y for involuntary transfer due to his risk for self-harm. The patient was accepted by inpatient [facility] facility and was transferred. The patient's Lynn catheter was removed and a voiding trial was don e and he was able to void on his own. He does have some benign prostatic hyperplasia and he will be continued on his tamsulosin. Discharge Condition: Fair. Activity: As tolerated. Medications: As per medication reconciliation list. Followup: With psychiatrist at the inpatient psychiatric facility. Return to ER for worsening condi tion. Follow up with PCP in 1-2 weeks. Medications: As per medication reconciliation list. Diet: Heart healthy. Total time spent discharging the patient was 39 minutes. Physical Examination: General: Awake, alert, oriented, no acute distress. CV: S1, S2. No murmurs. Respiratory: Moving air well bilaterally. No wheezing. Abdomen: Soft, nontender, nondistended. Positive bowel sounds. Extremities: No clubbing, cyanosis, edema. Neuro: Nonfocal. Psych: Dysphoric mood. Affect is congruent with mood, insight and judgment are poor. SA/MODL Voice ID: [id number] Report ID: [id number]
== END 2017-10-03 13:18 | DRG 917 ==
LOC: ER 14:35 → ERHOLD 16:57 → 2ND 18:29 → OBSVTOIN 10-02 14:14
PROVIDERS: ADMIT Family Medicine; ATTEND Family Medicine
DX: T42.4X2A Poisoning by benzodiazepines, intentional self-harm, initial encounter (principal); G92 Toxic encephalopathy; N30.00 Acute cystitis without hematuria; N13.8 Other obstructive and reflux uropathy; Y92.009 Unspecified place in unspecified non-institutional (private) residence as the place of occurrence of the external cause; E87.6 Hypokalemia; I10 Essential (primary) hypertension; N40.1 Benign prostatic hyperplasia with lower urinary tract symptoms; E78.5 Hyperlipidemia, unspecified; F41.8 Other specified anxiety disorders; K21.9 Gastro-esophageal reflux disease without esophagitis
CPT/HCPCS: 36415; 70450; 70553; 71045; 80048; 80053; 80061; 80307; 80320; 80329; 81003; 81015; 82140; 82805; 82962; 83605; 83735; 84132; 85025; 85610; 87040; 87086; 87088; 93005; 93880; 94760; 94762; 95819; 99285; A9579; G0378; J0696; J1630; J1650; J2405; J3411; J7030

== ENCOUNTER 2018-06-10 12:36 | Emergency (ER) | payer OTHER ==
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
--- NOTE | 2018-06-10 14:33 | RAD REPORT ---
EXAM DESCRIPTION: RAD - Foot Left 3 View - 06/10/2018 2:04 pm CLINICAL HISTORY: Left Foot pain FINDINGS: No fracture or dislocation is seen. The bones are osteoporotic
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
[2018-06-10] MEDS ORDERED: ACETAMINOPHEN 500 MG TAB ONE (15:18)
[2018-06-10 15:45] VITALS: TEMP 98.4
[2018-06-10 15:47] VITALS: BP 128/81; O2SAT 99
== END 2018-06-10 15:27 | disposition home or self-care (01) ==
LOC: ER 12:36
DX: S13.4XXA Sprain of ligaments of cervical spine, initial encounter (principal); S30.1XXA Contusion of abdominal wall, initial encounter; S90.32XA Contusion of left foot, initial encounter; S90.31XA Contusion of right foot, initial encounter; V49.40XA Driver injured in collision with unspecified motor vehicles in traffic accident, initial encounter; Z88.2 Allergy status to sulfonamides; I10 Essential (primary) hypertension; E78.5 Hyperlipidemia, unspecified; F32.9 Major depressive disorder, single episode, unspecified
CPT/HCPCS: 70450; 71260; 72125; 74177; 99285; Q9967

== ENCOUNTER 2018-07-22 01:00 | Emergency (ER) | payer OTHER ==
[2018-07-22] MEDS ORDERED: NA CHLORIDE 0.9% 1,000 ML ONE (02:07)
[2018-07-22 02:23] LABS: Barbiturates NEGATIVE (NEGATIVE); Benzodiazepines POSITIVE (NEGATIVE); Cocaine NEGATIVE (NEGATIVE); METHAMPHETAM POSITIVE (NEGATIVE); Methadone NEGATIVE (NEGATIVE); Opiates NEGATIVE (NEGATIVE); Phencyclidine NEGATIVE (NEGATIVE); THC Cannibis NEGATIVE (NEGATIVE)
[2018-07-22 02:24] LABS: Absolute Lymphocytes (CBC) 2.3 K/uL (0.7-4.9); Absolute Monocytes 0.7 K/uL (0.1-1.3); Absolute Neutrophil 3.2 K/uL (1.8-8.0); Basophils % 0.9 % (0-1.3); Eosinophils % 6.4 % (0-4.4); Hematocrit 37.8 % (39.6-49.0); Lymphocytes % 34.7 % (15.3-44.8); MPV 9.3 fL (7.6-11.3); Monocytes % 10.9 % (3.3-12.3); RBC Red Blood Cell Count 4.07 M/uL (4.33-5.43)
[2018-07-22 02:26] LABS: Protime INR 0.95
[2018-07-22 03:02] LABS: ALT/SGPT 22 U/L (12-78); AST/SGOT 14 U/L (15-37); Albumin 3.6 g/dL (3.4-5.0); Alkaline Phosphatase 164 U/L (45-117); BUN Blood Urea Nitrogen 12 mg/dL (7-18); Bicarbonate 29 mmol/L (21-32); Bilirubin Direct < 0.1 mg/dL (0-0.2); Bilirubin Total 0.1 mg/dL (0.2-1.0); Glucose Level 92 mg/dL (74-106); Protein, Total 6.8 g/dL (6.4-8.2); Sodium Level 144 mmol/L (136-145)
[2018-07-22 03:48] LABS: Urine Blood NEGATIVE (NEG); Urine Glucose NEGATIVE (NEG); Urine Protein NEGATIVE (NEG); Urine pH 6.5 (5.0-7.0)
--- NOTE | 2018-07-22 05:39 | EKG ---
Test Date: 2018-07-22 Test Time: 01:17:53 Handkerchief Presser: TASHA MEASUREMENT RESULTS: Intervals: Rate: 90 DE: 174 QRSD: 88 QT: 348 QTc: 425 [place]: P: 38 DE: 174 QRS: 15 T: 71 INTERPRETIVE STATEMENTS: Normal sinus rhythm Normal ECG Compared to ECG 09/30/2017 14:42:50 Sinus tachycardia no longer present T-wave abnormality no longer present Prolonged QT interval no longer present Electronically Signed On 07-22-18 05:38:25 CDT by Octavio Pearson
--- NOTE | 2018-07-22 07:19 | ER ---
Nurse's Notes [facility] Name: Edilberto Zamorano Age: 62 yrs Sex: Male : 1955 Arrival Date: 07/22/2018 Time: 01:10 Bed 17 Private MD: Diagnosis: Altered mental status. Substance abuse Presentation: 07/22 01:11 Presenting complaint: EMS states: Pt was having difficulty sleeping so he took an extra ed1 Trazadone so his daughter called EMS because he was sleeping. Transition of care: patient was not received from another setting of care. Onset of symptoms was July 22, 2018. Risk Assessment: Do you want to hurt yourself or someone else? Patient reports no desire to harm self or others. Initial Sepsis Screen: Does the patient meet any 2 criteria? No. Patient's initial sepsis screen is negative. Does the patient have a suspected source of infection? No. Patient's initial sepsis screen is negative. Care prior to arrival: IV initiated. 18 GA, in the right antecubital area. 01:11 Method Of Arrival: EMS: [facility] ed1 01:11 Acuity: JUSTYN 2 ed1 Triage Assessment: 01:17 General: Appears in no apparent distress. Behavior is drowsy, responsive to verbal ed1 stimuli. Pain: Unable to use pain scale. Does not appear to understand pain scale. EENT: No signs and/or symptoms were reported regarding the EENT system. Neuro: Level of Consciousness is confused, lethargic. Cardiovascular: Heart tones S1 S2 present. Respiratory: Airway is patent Respiratory effort is even, unlabored, Respiratory pattern is regular, symmetrical, Breath sounds are clear bilaterally. GI: Abdomen is non-distended, Bowel sounds present X 4 quads. Abd is soft X 4 quads. Derm: Skin is intact, is healthy with good turgor, Skin is dry, Skin is normal, Skin temperature is warm. Musculoskeletal: Circulation, motion, and sensation intact. Capillary refill < 3 seconds, in bilateral fingers. toes. Historical: - Allergies: 01:17 Sulfa (Sulfonamide Antibiotics); ed1 - Home Meds: 01:33 alprazolam 1 mg Oral tab 1 tab 3 times per day [Active]; pantoprazole 40 mg oral TbEC 1 ed1 tab once daily [Active]; trazodone 100 mg Oral tab 1 tab nightly [Active]; amitriptyline 50 mg Oral tab 1 tab once daily [Active]; Lyrica 300 mg Oral 1 cap 2 times per day [Active]; tramadol 50 mg Oral tab 1 tab every 6 hours [Active]; terazosin 2 mg oral cap 1 cap once daily [Active]; - PMHx: 01:17 Back pain; Depression; Hyperlipidemia; Hypertension; ed1 - PSHx: 01:17 Unable to obtain; ed1 - Immunization history:: Adult Immunizations unknown. - Social history:: Smoking status: unknown. - Ebola Screening: : Unable to complete screening because patient is disoriented, . Screenin:21 Abuse screen: Denies threats or abuse. Denies injuries from another. Nutritional ed1 screening: No deficits noted. Tuberculosis screening: No symptoms or risk factors identified. Fall Risk None identified. Assessment: 01:21 General: See triage assessment. ed1 03:04 Reassessment: Patient appears in no apparent distress at this time. No changes from ed1 previously documented assessment. Patient and/or family updated on plan of care and expected duration. Pain level reassessed. Contact info for daughter July [phone]. 04:07 Reassessment: Patient appears in no apparent distress at this time. No changes from ed1 previously documented assessment. Patient and/or family updated on plan of care and expected duration. Pain level reassessed. 05:02 Reassessment: Patient appears in no apparent distress at this time. No changes from ed1 previously documented assessment. Patient and/or family updated on plan of care and expected duration. Pain level reassessed. Respiratory: Airway is patent Respiratory effort is even, unlabored, Respiratory pattern is regular, symmetrical. 06:02 Reassessment: Patient appears in no apparent distress at this time. No changes from ed1 previously documented assessment. Patient and/or family updated on plan of care and expected duration. Pain level reassessed. 07:05 Reassessment: Patient appears in no apparent distress at this time. Patient and/or tw2 family updated on plan of care and expected duration. Pain level reassessed. pt appears to be sleeping at this time. 07:40 Reassessment: spoke with daughter July, she states she can be here soon as he is tw2 ready, instructed that pt is really still drowsy and not ready for discharge at this time. 08:56 Reassessment: Patient appears in no apparent distress at this time. Patient and/or tw2 family updated on plan of care and expected duration. Pain level reassessed. pt easily arousable, able to communicate at this time, states "yeah she can come get me im ready to go home". 08:58 Reassessment: pts daughter called and will come get him at this time. tw2 Vital Signs: 01:17 BP 117 / 73; Pulse 88; Resp 12; Temp 96.9(TE); Pulse Ox 98% on R/A; Pain 0/10; ed1 03:04 BP 107 / 73; Pulse 88; Resp 14; Pulse Ox 96% on R/A; ed1 04:07 BP 110 / 78; Pulse 87; Resp 14; Pulse Ox 96% on R/A; Pain 0/10; ed1 05:02 BP 124 / 82; Pulse 87; Resp 14; Pulse Ox 97% on R/A; Pain 0/10; ed1 06:02 BP 124 / 83; Pulse 83; Resp 12; Temp 97.3(TE); Pulse Ox 97% on R/A; Pain 0/10; ed1 07:05 BP 128 / 80; Pulse 82; Resp 10; Pulse Ox 96% on R/A; tw2 08:58 BP 134 / 93; Pulse 85; Resp 12; Pulse Ox 98% on R/A; tw2 ED Course: 01:10 Patient arrived in ED. ed1 01:11 Straight cath inserted, using sterile technique, 16 Fr. Specimen obtained. Returned mt clear yellow urine. Patient tolerated well. 01:13 Triage completed. ed1 01:15 Miquel Potts MD is Attending Physician. pkl 01:17 Arm band placed on right wrist. ed1 01:21 Patient has correct armband on for positive identification. Placed in gown. Bed in low ed1 position. Call light in reach. Side rails up X2. potline monitor on. Pulse ox on. NIBP on. Warm blanket given. 01:29 Pricilla Lopez, MONICA is Primary Nurse. ed1 01:59 CT Head Brain wo Cont In Process Unspecified. EDMS 02:07 Inserted saline lock: 20 gauge in right forearm, using aseptic technique. ed1 04:07 Appears to be sleeping. ed1 05:02 Appears to be sleeping. Awaiting disposition. ed1 06:03 Appears to be sleeping. Awaiting disposition. ed1 07:00 Primary Nurse role handed off by Pricilla Lopez RN ed1 07:04 Domenica Jackson, RN is Primary Nurse. tw2 07:42 Awaiting: awaiting pts condition to change and pt to become more alert. tw2 09:26 No provider procedures requiring assistance completed. IV discontinued, intact, tw2 bleeding controlled, No redness/swelling at site. Pressure dressing applied, b/l iv discontinued. Administered Medications: 02:07 Drug: NS 0.9% 1000 ml Route: IV; Rate: 125 ml/hr; Site: right forearm; ed1 Outcome: 07:18 Discharge ordered by . pkl 09:26 Patient left the ED. tw2 09:26 Discharged to home via wheelchair, with family. tw2 09:26 Condition: stable 09:26 Discharge instructions given to patient, family, Instructed on discharge instructions, follow up and referral plans. Demonstrated understanding of instructions, follow-up care. Signatures: Dispatcher [employer] EDMS Miquel Potts MD MD pkPricilla Lou, RN RN ed1 Domenica Jackson, MONICA RN tw2 Vera Walters wi Corrections: (The following items were deleted from the chart) 01:33 01:17 Home Meds: Unable to obtain; ed1 ed1
--- NOTE | 2018-07-22 07:19 | EDPHYS ---
Physician Documentation [facility] Name: Edilberto Zamorano Age: 62 yrs Sex: Male : 1955 Arrival Date: 07/22/2018 Time: 01:10 Bed 17 Private MD: ED Physician Miquel Potts HPI: 07/22 01:24 This 62 yrs old Male presents to ER via EMS with complaints of Drug Abuse. pkl 01:24 The patient presents with decreased mental status. Onset: The symptoms/episode pkl began/occurred just prior to arrival. Possible causes: drug overdose. Associated signs and symptoms: The patient has no apparent associated signs or symptoms. Historical: - Allergies: 01:17 Sulfa (Sulfonamide Antibiotics); ed1 - Home Meds: 01:33 alprazolam 1 mg Oral tab 1 tab 3 times per day [Active]; pantoprazole 40 mg oral TbEC 1 ed1 tab once daily [Active]; trazodone 100 mg Oral tab 1 tab nightly [Active]; amitriptyline 50 mg Oral tab 1 tab once daily [Active]; Lyrica 300 mg Oral 1 cap 2 times per day [Active]; tramadol 50 mg Oral tab 1 tab every 6 hours [Active]; terazosin 2 mg oral cap 1 cap once daily [Active]; - PMHx: 01:17 Back pain; Depression; Hyperlipidemia; Hypertension; ed1 - PSHx: 01:17 Unable to obtain; ed1 - Immunization history:: Adult Immunizations unknown. - Social history:: Smoking status: unknown. - Ebola Screening: : Unable to complete screening because patient is disoriented, . ROS: 01:24 Eyes: Negative for injury, pain, redness, and discharge, ENT: Negative for injury, pkl pain, and discharge, Neck: Negative for injury, pain, and swelling, Cardiovascular: Negative for chest pain, palpitations, and edema, Respiratory: Negative for shortness of breath, cough, wheezing, and pleuritic chest pain, Abdomen/GI: Negative for abdominal pain, nausea, vomiting, diarrhea, and constipation, Back: Negative for injury and pain, : Negative for injury, bleeding, discharge, and swelling, MS/Extremity: Negative for injury and deformity, Skin: Negative for injury, rash, and discoloration. 01:24 Neuro: Positive for altered mental status. Exam: 01:24 Head/Face: Normocephalic, atraumatic. Eyes: Pupils equal round and reactive to light, pkl extra-ocular motions intact. Lids and lashes normal. Conjunctiva and sclera are non-icteric and not injected. Cornea within normal limits. Periorbital areas with no swelling, redness, or edema. ENT: Nares patent. No nasal discharge, no septal abnormalities noted. Tympanic membranes are normal and external auditory canals are clear. Oropharynx with no redness, swelling, or masses, exudates, or evidence of obstruction, uvula midline. Mucous membranes moist. Neck: Trachea midline, no thyromegaly or masses palpated, and no cervical lymphadenopathy. Supple, full range of motion without nuchal rigidity, or vertebral point tenderness. No Meningismus. Chest/axilla: Normal chest wall appearance and motion. Nontender with no deformity. No lesions are appreciated. Cardiovascular: Regular rate and rhythm with a normal S1 and S2. No gallops, murmurs, or rubs. Normal PMI, no JVD. No pulse deficits. Respiratory: Lungs have equal breath sounds bilaterally, clear to auscultation and percussion. No rales, rhonchi or wheezes noted. No increased work of breathing, no retractions or nasal flaring. Abdomen/GI: Soft, non-tender, with normal bowel sounds. No distension or tympany. No guarding or rebound. No evidence of tenderness throughout. Back: No spinal tenderness. No costovertebral tenderness. Full range of motion. Skin: Warm, dry with normal turgor. Normal color with no rashes, no lesions, and no evidence of cellulitis. MS/ Extremity: Pulses equal, no cyanosis. Neurovascular intact. Full, normal range of motion. 01:24 Neuro: Orientation: unable to test, the patient is comatose, Mentation: responsive to voice slow to respond, Cranial nerves: grossly normal, Motor: moves all fours. Vital Signs: 01:17 BP 117 / 73; Pulse 88; Resp 12; Temp 96.9(TE); Pulse Ox 98% on R/A; Pain 0/10; ed1 03:04 BP 107 / 73; Pulse 88; Resp 14; Pulse Ox 96% on R/A; ed1 04:07 BP 110 / 78; Pulse 87; Resp 14; Pulse Ox 96% on R/A; Pain 0/10; ed1 05:02 BP 124 / 82; Pulse 87; Resp 14; Pulse Ox 97% on R/A; Pain 0/10; ed1 06:02 BP 124 / 83; Pulse 83; Resp 12; Temp 97.3(TE); Pulse Ox 97% on R/A; Pain 0/10; ed1 07:05 BP 128 / 80; Pulse 82; Resp 10; Pulse Ox 96% on R/A; tw2 08:58 BP 134 / 93; Pulse 85; Resp 12; Pulse Ox 98% on R/A; tw2 MDM: 01:16 Patient medically screened. pkl 07:15 Data reviewed: vital signs, nurses notes, lab test result(s), radiologic studies. pkl 07:18 ED course: UDS. ( Positive for Benzo and Meth. ). pkl 07/22 01:21 Order name: Acetaminophen pkl 07/22 01:21 Order name: Basic Metabolic Panel pkl 07/22 01:21 Order name: CBC with Diff pkl 07/22 01:21 Order name: ETOH Level pkl 07/22 01:21 Order name: Hepatic Function; Complete Time: 04:20 pkl 07/22 01:21 Order name: PT-INR; Complete Time: 03:03 pkl 07/22 01:21 Order name: Ptt, Activated; Complete Time: 03:03 pkl 07/22 01:21 Order name: Salicylate; Complete Time: 03:03 pkl 07/22 01:21 Order name: Urine Drug Screen; Complete Time: 03:03 pkl 07/22 01:22 Order name: Acetaminophen Level; Complete Time: 04:20 EDMS 07/22 01:22 Order name: Basic Metabolic Panel; Complete Time: 04:20 EDMS 07/22 01:22 Order name: CBC with Automated Diff; Complete Time: 03:03 EDMS 07/22 01:22 Order name: Alcohol Serum/Plasma; Complete Time: 03:03 EDMS 07/22 01:28 Order name: Urine Dipstick--Ancillary (enter results); Complete Time: 04:20 ms 07/22 01:21 Order name: EKG; Complete Time: 01:22 pkl 07/22 01:21 Order name: EKG - Nurse/Tech; Complete Time: 01:22 pkl 07/22 01:21 Order name: IV Saline Lock; Complete Time: pkl 07/22 01:21 Order name: Labs collected and sent; Complete Time: pkl 07/22 01:21 Order name: Urine Dipstick-Ancillary (obtain specimen); Complete Time: pkl 07/22 01:21 Order name: CT Head Brain wo Cont pkl 07/22 02:08 Order name: Labs - recollect needed; Complete Time: 02:09 ms Administered Medications: 02:07 Drug: NS 0.9% 1000 ml Route: IV; Rate: 125 ml/hr; Site: right forearm; ed1 Disposition: 07/22/18 07:18 Discharged to Home. Impression: Altered mental status. Substance abuse. - Condition is Stable. - Medication Reconciliation Form, Thank You Letter, Antibiotic Education, Prescription Opioid Use form. - Follow up: Private Physician; When: 1 - 2 days; Reason: Re-evaluation by your physician. - Problem is new. - Symptoms have improved. Signatures: Dispatcher [employer] EDMS Miquel Potts MD MD pkl Solis, Maria ms Riggs, Erika RN RN ed1 Domenica Jackson RN RN tw2 Corrections: (The following items were deleted from the chart) 01:33 01:17 Home Meds: Unable to obtain; ed1 ed1 09:26 07:18 07/22/2018 07:18 Discharged to Home. Impression: Altered mental status. Substance tw2 abuse. Condition is Stable. Forms are Medication Reconciliation Form, Thank You Letter, Antibiotic Education, Prescription Opioid Use. Follow up: Private Physician; When: 1 - 2 days; Reason: Re-evaluation by your physician. Problem is new. Symptoms have improved. pkl
[2018-07-22 09:40] VITALS: TEMP 97.3
[2018-07-22 09:43] VITALS: BP 134/93; O2SAT 98
--- NOTE | 2018-07-22 11:11 | RAD REPORT ---
EXAM DESCRIPTION: CT - Head Brain Wo Cont - 07/22/2018 6:07 am CLINICAL HISTORY: Altered mental status COMPARISON: None. TECHNIQUE: Axial [address] imaging of the brain. Reformatted coronal and sagittal images ob tained. This examination was performed according to our departmental dose optimization program, which include s automated exposure control, adjustment of the mA and/or kV according to patient size and/or use of iterative reconstruction technique. FINDINGS: The ventricles and extra-axial fluid spaces are normal for age. There is no intracranial h emorrhage. No mass lesion. No midline shift. No acute large territorial infarction. No hyperdense ves mimi. No edema. Normal cerebellum and vermis. Fourth ventricle is midline. Prepontine cisterns are not effaced. Gloria l sella contents. Normal appearance of the globes and remaining intraorbital contents. Moderate mucosal thickening thro ughout the ethmoid air cells. Mild mucosal thickening within the anterior right frontal sinus. Bilate ral middle turbinate ten bullosa. Mastoid air cells are clear bilaterally. Skull base is intact. U nremarkable calvarium. Normal scalp soft tissues. IMPRESSION: 1. No intracranial acute finding. 2. Ethmoid sinus and right frontal sinus mucosal disease. Electronically signed by: Yessica Nelson DO 07/22/2018 2:09 AM CDT Due to temporary technical issues with the PACS/Fluency reporting system, reports are being signed by the in house radiologist as a courtesy to ensure prompt reporting. The interpreting radiologist is f ully responsible for the content of the report.
== END 2018-07-22 09:26 | disposition home or self-care (01) ==
LOC: ER 01:00
DX: F13.10 Sedative, hypnotic or anxiolytic abuse, uncomplicated (principal); F15.10 Other stimulant abuse, uncomplicated; I10 Essential (primary) hypertension; E78.5 Hyperlipidemia, unspecified; F32.9 Major depressive disorder, single episode, unspecified; Z88.2 Allergy status to sulfonamides
CPT/HCPCS: 36415; 51702; 70450; 80048; 80076; 80307; 80320; 80329; 81003; 85025; 85610; 85730; 93005; 99284; J7030

== ENCOUNTER 2018-10-15 01:50 | Emergency (ER) | payer OTHER ==
[2018-10-15 04:57] LABS: Barbiturates NEGATIVE (NEGATIVE); Benzodiazepines POSITIVE (NEGATIVE); Cocaine NEGATIVE (NEGATIVE); METHAMPHETAM NEGATIVE (NEGATIVE); Methadone NEGATIVE (NEGATIVE); Opiates NEGATIVE (NEGATIVE); Phencyclidine NEGATIVE (NEGATIVE); THC Cannibis NEGATIVE (NEGATIVE)
[2018-10-15 04:58] LABS: ALT/SGPT 48 U/L (12-78); AST/SGOT 21 U/L (15-37); Albumin 3.9 g/dL (3.4-5.0); Alkaline Phosphatase 171 U/L (45-117); BUN Blood Urea Nitrogen 8 mg/dL (7-18); Bicarbonate 27 mmol/L (21-32); Bilirubin Direct < 0.1 mg/dL (0-0.2); Bilirubin Total 0.2 mg/dL (0.2-1.0); Glucose Level 100 mg/dL (74-106); Potassium 4.4 mmol/L (3.5-5.1); Protein, Total 7.3 g/dL (6.4-8.2); Sodium Level 141 mmol/L (136-145)
[2018-10-15 05:00] LABS: Absolute Lymphocytes (CBC) 2.2 K/uL (0.7-4.9); Basophils % 1.1 % (0-1.3); Eosinophils % 5.2 % (0-4.4); Hematocrit 43.1 % (39.6-49.0); Lymphocytes % 28.9 % (15.3-44.8); MPV 10.3 fL (7.6-11.3); Monocytes % 7.7 % (3.3-12.3); RBC Red Blood Cell Count 4.69 M/uL (4.33-5.43)
[2018-10-15 05:28] LABS: Urine Blood NEGATIVE (NEG); Urine Glucose NEGATIVE (NEG); Urine Protein NEGATIVE (NEG)
--- NOTE | 2018-10-15 08:20 | EDPHYS ---
Physician Documentation [facility] Name: Edilberto Zamorano Age: 63 yrs Sex: Male : 1955 Arrival Date: 10/15/2018 Time: 01:52 Bed 20 Private MD: ED Physician Henry Nino HPI: 10/15 02:19 This 63 yrs old Male presents to ER via Law Enforcement with complaints of rn head injury. 02:19 The patient or guardian reports injury, a laceration. The complaints affect the rn forehead. Onset: The symptoms/episode began/occurred just prior to arrival. Associated signs and symptoms: The patient has no apparent associated signs or symptoms, Loss of consciousness: This patient did not experience any loss of consciousness. Pertinent positives: patient admits to or smells of alcohol consumption, Pertinent negatives: double vision, incontinence, seizure. Severity of symptoms: At their worst the symptoms were mild, in the emergency department the symptoms are unchanged. The patient has not experienced similar symptoms in the past. Reports was drinking, walked into room, tripped, hit head on lamp/table, not sure if lost consciousness. Per report from police, daughter told them that he was suicidal due to anniversary of 's . Patient has denied suicidal ideation entire time, denies to me. 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 Requesting to go home. Daughter not here to tell her story. . Historical: - Allergies: 02:09 Sulfa (Sulfonamide Antibiotics); ak1 - Home Meds: 02:09 alprazolam 1 mg Oral tab 1 tab 3 times per day [Active]; amitriptyline 50 mg Oral tab 1 ak1 tab once daily [Active]; Lyrica 300 mg Oral 1 cap 2 times per day [Active]; pantoprazole 40 mg Oral TbEC 1 tab once daily [Active]; terazosin 2 mg Oral cap 1 cap once daily [Active]; tramadol 50 mg Oral tab 1 tab every 6 hours [Active]; trazodone 100 mg Oral tab 1 tab nightly [Active]; - PMHx: 02:09 Back pain; Depression; Hyperlipidemia; Hypertension; Anxiety; ak1 - PSHx: 02:09 Appendectomy; ak1 - Immunization history:: Adult Immunizations unknown. - Social history:: Smoking status: Patient uses tobacco products, smokes one-half pack cigarettes per day, Patient uses alcohol, weekly. pt stated he drinks beer and had a 6 pack today. . - Ebola Screening: : No symptoms or risks identified at this time. - Family history:: not pertinent. - Hospitalizations: : No recent hospitalization is reported. ROS: 02:19 Constitutional: Negative for fever, chills, and weight loss, Eyes: + right supraorbital rn laceration Neck: Negative for injury, pain, and swelling, Cardiovascular: Negative for chest pain, palpitations, and edema, Respiratory: Negative for shortness of breath, cough, wheezing, and pleuritic chest pain, Abdomen/GI: Negative for abdominal pain, nausea, vomiting, diarrhea, and constipation, MS/Extremity: Negative for injury and deformity, Skin: + laceration to right forehead Neuro: Negative for headache, weakness, numbness, tingling, and seizure. Exam: 02:19 Constitutional: This is a well developed, well nourished patient who is awake, alert, rn and in no acute distress. Head/Face: Normocephalic, 2 cm superficial laceration above right eyebrow, no active bleeding, no fat herniation. Eyes: Pupils equal round and reactive to light, extra-ocular motions intact. Lids and lashes normal. Conjunctiva and sclera are non-icteric and not injected. Cornea within normal limits. ENT: no oral trauma Neck: Trachea midline, no thyromegaly or masses palpated, and no cervical lymphadenopathy. Supple, full range of motion without nuchal rigidity, or vertebral point tenderness. No Meningismus. Cardiovascular: Regular rate and rhythm. No pulse deficits. Respiratory: Lungs have equal breath sounds bilaterally, clear to auscultation. No increased work of breathing, no retractions or nasal flaring. Abdomen/GI: Soft, non-tender, with normal bowel sounds. No distension or tympany. No guarding or rebound. No evidence of tenderness throughout. MS/ Extremity: Pulses equal, no cyanosis. Neurovascular intact. Full, normal range of motion. Equal circumference. Neuro: Awake and alert, GCS 15, oriented to person, place, time, and situation. Cranial nerves II-XII grossly intact. Motor strength 5/5 in all extremities. Sensory grossly intact. Cerebellar exam normal. Vital Signs: 02:03 BP 111 / 92; Pulse 88; Resp 20; Temp 98.3; Pulse Ox 100% on R/A; Weight 61.23 kg (R); ak1 Height 5 ft. 0 in. (152.40 cm); Pain 6/10; 04:05 BP 102 / 59; Pulse 78; Resp 17; Temp 97.5; Pulse Ox 94% ; Pain 0/10; cm6 06:50 BP 112 / 77; Pulse 79; Resp 18; Temp 97.6; Pulse Ox 97% ; Pain 0/10; cm6 02:03 Body Mass Index 26.37 (61.23 kg, 152.40 cm) ak1 [place] Coma Score: 02:19 Eye Response: spontaneous(4). Verbal Response: oriented(5). Motor Response: obeys rn commands(6). Total: 15. Laceration: 03:42 Wound Repair of 3cm ( 1.2in ) subcutaneous laceration to forehead. Distal rn neuro/vascular/tendon intact. Anesthesia: Wound infiltrated with 5 mls of 1% lidocaine. Wound prep: Extensive cleansing by nurse, Wound explored extensively. Subcutaneous tissue closed with 3 4-0 Vicryl using interrupted sutures and sterile technique. Skin closed with 6 5-0 fast absorbing gut using interrupted sutures and sterile technique. Dressed with 4x4's. Patient tolerated well. MDM: 02:01 Patient medically screened. rn 07:03 ED course: Pt sober, sleeping, laceration repaired, and ct head negative. Pending staff rn eval for clearance given patient denying suicidal ideation. Awaiting [facility]. . 08:20 Data reviewed: vital signs, nurses notes, lab test result(s), radiologic studies. kdr Counseling: I had a detailed discussion with the patient and/or guardian regarding: the historical points, exam findings, and any diagnostic results supporting the discharge/admit diagnosis, lab results, radiology results, the need for outpatient follow up. ED course: The patient continues to be stable in the ED and denies SI at any time recently. He continues to be sad about his 's passing and denies SI.. 10/15 02:09 Order name: Acetaminophen; Complete Time: 05:16 rn 10/15 02:09 Order name: Basic Metabolic Panel; Complete Time: 05:16 rn 10/15 02:09 Order name: CBC with Diff; Complete Time: 05:16 rn 10/15 02:09 Order name: ETOH Level; Complete Time: 05:16 rn 10/15 02:09 Order name: Hepatic Function; Complete Time: 05:16 rn 10/15 02:09 Order name: Salicylate; Complete Time: 05:16 rn 10/15 02:09 Order name: CT Head Brain wo Cont rn 10/15 02:09 Order name: Urine Drug Screen; Complete Time: 05:16 rn 10/15 02:09 Order name: EKG; Complete Time: 04:36 rn 10/15 02:09 Order name: EKG - Nurse/Tech; Complete Time: 03:19 rn 10/15 02:45 Order name: Urine Dipstick--Ancillary (enter results); Complete Time: 07:05 [facility] 10/15 07:50 Order name: Diet Heart Healthy; Complete Time: 07:51 10/15 02:09 Order name: IV Saline Lock; Complete Time: 03:20 rn 10/15 02:09 Order name: Labs collected and sent; Complete Time: 03:20 rn 10/15 02:09 Order name: Urine Dipstick-Ancillary (obtain specimen); Complete Time: 03:20 rn 10/15 02:09 Order name: Suture Tray at Bedside; Complete Time: 02:59 rn Administered Medications: 03:00 Drug: Lidocaine (1 %) 1 vials Volume: 5 ml; Route: Infiltration; aa1 06:59 Follow up: Response: No adverse reaction 03:32 Drug: NS 0.9% 1000 ml Route: IV; Rate: 1000 ml; Site: right antecubital; aa1 06:59 Follow up: IV Status: Completed infusion; IV Intake: 1000ml hj Disposition: 10/15/18 08:17 Discharged to Home. Impression: Superficial injury of head, Facial/Forehead laceration. - Condition is Stable. - Discharge Instructions: Facial Laceration, Head Injury, Adult, [id number]. - Prescriptions for Keflex 500 mg Oral Capsule - take 1 capsule by ORAL route every 8 hours for 3 days; 9 capsule. - Medication Reconciliation Form, Thank You Letter, Antibiotic Education form. - Follow up: Private Physician; When: 2 - 3 days; Reason: If symptoms return, Further diagnostic work-up, Recheck today's complaints, Continuance of care, Re-evaluation by your physician. - Problem is new. - Symptoms have improved. - Notes: Sutures out in 5-7 days Signatures: Dispatcher [employer] EDTiffany Calixto RN RN aa1 Henry Nino MD MD kdr Nieto, Roman, MD MD rn Krenek, Amber RN RN ak1 Klaus Grey RN RN hj Corrections: (The following items were deleted from the chart) 08:31 08:17 10/15/2018 08:17 Discharged to Home. Impression: Superficial injury of head; hj Facial/Forehead laceration. Condition is Stable. Forms are Medication Reconciliation Form, Thank You Letter, Antibiotic Education, Prescription Opioid Use. Follow up: Private Physician; When: 2 - 3 days; Reason: If symptoms return, Further diagnostic work-up, Recheck today's complaints, Continuance of care, Re-evaluation by your physician. Problem is new. Symptoms have improved. kdr
--- NOTE | 2018-10-15 08:20 | ER ---
Nurse's Notes [facility] Name: Edilberto Zamorano Age: 63 yrs Sex: Male : 1955 Arrival Date: 10/15/2018 Time: 01:52 Bed 20 Private MD: Diagnosis: Superficial injury of head;Facial/Forehead laceration Presentation: 10/15 02:04 Presenting complaint: Patient states: he tripped and fell over a chair in his room ak1 hitting a lamp. lac above right eye, clean, bleeding controlled. pt denies SI. pt admits to missing his and drinking a 6 pack of beer tonight and taking his prescribed 3 xanax pills, 2 tramadol pills. pt denies a plan to harm himself. Ankush VILLANUEVA brought pt to ER due to pt child stating pt wanted to go see his in [facility]. pt stated he has an appointment with Dr. Zavala 11/06/18. Transition of care: patient was not received from another setting of care. Onset of symptoms was October 15, 2018. Risk Assessment: Do you want to hurt yourself or someone else? Patient reports desire/thoughts of hurting themselves or someone else. Provider notified. Initial Sepsis Screen: Does the patient meet any 2 criteria? No. Patient's initial sepsis screen is negative. Does the patient have a suspected source of infection? No. Patient's initial sepsis screen is negative. Note Ankush VILLANUEVA provided Emergency Custodial order. Care prior to arrival: None. 02:04 Method Of Arrival: Law Enforcement: Ankush VILLANUEVA ak1 02:04 Acuity: JUSTYN 2 ak1 Triage Assessment: 02:09 General: Appears in no apparent distress. Behavior is calm, cooperative, quiet. Pain: ak1 Complains of pain in inner aspect of right eyebrow, middle aspect of right eyebrow and outer aspect of right eyebrow. EENT: No signs and/or symptoms were reported regarding the EENT system. Neuro: Level of Consciousness is awake, alert, obeys commands, Oriented to person, place, time, situation, Insert Molding Operator are equal bilaterally Moves all extremities. Gait is steady, Speech is slurred, pt with ETOH on board. Cardiovascular: No deficits noted. Respiratory: No deficits noted. GI: No signs and/or symptoms were reported involving the gastrointestinal system. : No signs and/or symptoms were reported regarding the genitourinary system. Derm: Wound noted inner aspect of right eyebrow, middle aspect of right eyebrow and outer aspect of right eyebrow. Historical: - Allergies: 02:09 Sulfa (Sulfonamide Antibiotics); ak1 - Home Meds: 02:09 alprazolam 1 mg Oral tab 1 tab 3 times per day [Active]; amitriptyline 50 mg Oral tab 1 ak1 tab once daily [Active]; Lyrica 300 mg Oral 1 cap 2 times per day [Active]; pantoprazole 40 mg Oral TbEC 1 tab once daily [Active]; terazosin 2 mg Oral cap 1 cap once daily [Active]; tramadol 50 mg Oral tab 1 tab every 6 hours [Active]; trazodone 100 mg Oral tab 1 tab nightly [Active]; - PMHx: 02:09 Back pain; Depression; Hyperlipidemia; Hypertension; Anxiety; ak1 - PSHx: 02:09 Appendectomy; ak1 - Immunization history:: Adult Immunizations unknown. - Social history:: Smoking status: Patient uses tobacco products, smokes one-half pack cigarettes per day, Patient uses alcohol, weekly. pt stated he drinks beer and had a 6 pack today. . - Ebola Screening: : No symptoms or risks identified at this time. - Family history:: not pertinent. - Hospitalizations: : No recent hospitalization is reported. Screenin:10 Abuse screen: Denies threats or abuse. Denies injuries from another. Nutritional aa1 screening: No deficits noted. Tuberculosis screening: No symptoms or risk factors identified. Fall Risk None identified. Assessment: 02:10 General: Appears in no apparent distress. comfortable, Behavior is calm, cooperative, aa1 appropriate for age. Pain: Denies pain. Neuro: Level of Consciousness is awake, alert, obeys commands, Oriented to person, place, time, situation, Moves all extremities. Full function Gait is steady, Speech is normal. Cardiovascular: Heart tones S1 S2 present Rhythm is regular. Respiratory: Airway is patent Respiratory effort is even, unlabored, Respiratory pattern is regular, symmetrical. GI: No signs and/or symptoms were reported involving the gastrointestinal system. : No signs and/or symptoms were reported regarding the genitourinary system. EENT: No signs and/or symptoms were reported regarding the EENT system. Derm: Skin is intact, is healthy with good turgor, Skin is pink, warm \T\ dry. Musculoskeletal: Circulation, motion, and sensation intact. Capillary refill < 3 seconds. Injury Description: Laceration sustained to above right orbital ridge is clean, 0.5 to 2.5 cm long, not bleeding. 03:05 Reassessment: Patient appears in no apparent distress at this time. Patient and/or aa1 family updated on plan of care and expected duration. Pain level reassessed. Patient is alert, oriented x 3, equal unlabored respirations, skin warm/dry/pink. Pt back from CT. 03:33 Reassessment: Patient appears in no apparent distress at this time. Patient and/or aa1 family updated on plan of care and expected duration. Pain level reassessed. Patient is alert, oriented x 3, equal unlabored respirations, skin warm/dry/pink. Dr. Sorenson at bedside for lac repair. 04:30 Reassessment: Patient appears in no apparent distress at this time. Patient and/or aa1 family updated on plan of care and expected duration. Pain level reassessed. Patient is alert, oriented x 3, equal unlabored respirations, skin warm/dry/pink. Pt continues to await evaluation from [facility]. 05:30 Reassessment: Patient appears in no apparent distress at this time. Patient and/or aa1 family updated on plan of care and expected duration. Pain level reassessed. Patient is alert, oriented x 3, equal unlabored respirations, skin warm/dry/pink. Pt continues to await evaluation from [facility]. 06:43 Reassessment: Patient appears in no apparent distress at this time. Patient and/or aa1 family updated on plan of care and expected duration. Pain level reassessed. Patient is alert, oriented x 3, equal unlabored respirations, skin warm/dry/pink. Pt continues to await evaluation from [facility]. 07:00 General: Appears in no apparent distress. comfortable, Behavior is calm, cooperative, hj appropriate for age. Pain: Denies pain. Neuro: Level of Consciousness is awake, alert, obeys commands, Oriented to person, place, time, situation, Appropriate for age Moves all extremities. Full function Gait is unsteady, Speech is normal. Cardiovascular: Heart tones S1 S2 present Rhythm is regular. Respiratory: Airway is patent Respiratory effort is even, unlabored, Respiratory pattern is regular, symmetrical. GI: No signs and/or symptoms were reported involving the gastrointestinal system. : No signs and/or symptoms were reported regarding the genitourinary system. EENT: No signs and/or symptoms were reported regarding the EENT system. Derm: Skin is intact, is healthy with good turgor, Skin is pink, warm \T\ dry. Musculoskeletal: Circulation, motion, and sensation intact. Capillary refill < 3 seconds. Injury Description: Laceration. 07:11 Reassessment: patients daughter's contact number- July- [phone]. hj 07:16 Reassessment: [facility] rep in room for eval;. hj 08:10 Reassessment: provider in room for POC; pt for D/C;. hj 08:19 Reassessment: pt called mother in law for a ride; awaiting ride;. hj Vital Signs: 02:03 BP 111 / 92; Pulse 88; Resp 20; Temp 98.3; Pulse Ox 100% on R/A; Weight 61.23 kg (R); ak1 Height 5 ft. 0 in. (152.40 cm); Pain 6/10; 04:05 BP 102 / 59; Pulse 78; Resp 17; Temp 97.5; Pulse Ox 94% ; Pain 0/10; cm6 06:50 BP 112 / 77; Pulse 79; Resp 18; Temp 97.6; Pulse Ox 97% ; Pain 0/10; cm6 02:03 Body Mass Index 26.37 (61.23 kg, 152.40 cm) ak1 [place]in Coma Score: 02:19 Eye Response: spontaneous(4). Verbal Response: oriented(5). Motor Response: obeys rn commands(6). Total: 15. ED Course: 01:52 Patient arrived in ED. ds1 02:01 Dusty Sorenson MD is Attending Physician. rn 02:03 Arm band placed on Patient placed in an exam room, on a stretcher, Patient notified of ak1 wait time. 02:03 Safety checks: Items removed: yes. Door open/sign placed on door: yes. Family/friend cm6 present: no. Sitter present: Yes. 02:07 Triage completed. ak1 02:10 Patient has correct armband on for positive identification. Placed in gown. Bed in low aa1 position. 02:10 Urine collected: clean catch specimen, clear. aa1 02:18 Safety checks: Items removed: yes. Door open/sign placed on door: yes. Family/friend cm6 present: no. Sitter present: Yes. 02:33 Safety checks: Items removed: Door open/sign placed on door: yes. Family/friend cm6 present: no. Sitter present: Yes. 02:38 Inserted saline lock: 22 gauge antecubital area, using aseptic technique. cm6 02:48 Safety checks: Items removed: yes. Door open/sign placed on door: yes. Family/friend cm6 present: no. Sitter present: Yes. 03:03 Safety checks: Items removed: yes. Door open/sign placed on door: yes. Family/friend cm6 present: no. Sitter present: Yes. 03:05 Tiffany Vu RN is Primary Nurse. aa1 03:18 Safety checks: Items removed: yes. Door open/sign placed on door: yes. Family/friend cm6 present: no. Sitter present: Yes. 03:33 Safety checks: Items removed: yes. Door open/sign placed on door: yes. Family/friend cm6 present: no. Sitter present: Yes. 03:48 Safety checks: Items removed: Door open/sign placed on door: yes. Family/friend cm6 present: no. Sitter present: Yes. 04:03 Safety checks: Items removed: yes. Door open/sign placed on door: yes. Family/friend cm6 present: no. Sitter present: Yes. 04:18 Safety checks: Items removed: yes. Door open/sign placed on door: yes. Family/friend cm6 present: no. Sitter present: Yes. 04:33 Safety checks: Items removed: yes. Door open/sign placed on door: yes. Family/friend cm6 present: no. Sitter present: Yes. 04:48 Safety checks: Items removed: yes. Door open/sign placed on door: yes. Family/friend cm6 present: no. Sitter present: Yes. 05:03 Safety checks: Items removed: yes. Door open/sign placed on door: yes. Family/friend cm6 present: no. Sitter present: Yes. 05:18 Safety checks: Items removed: yes. Door open/sign placed on door: yes. Family/friend cm6 present: no. Sitter present: Yes. 05:33 Safety checks: Items removed: yes. Door open/sign placed on door: yes. Family/friend cm6 present: no. Sitter present: Yes. 05:48 Safety checks: Items removed: yes. Door open/sign placed on door: yes. Family/friend cm6 present: no. Sitter present: Yes. 06:03 Safety checks: Items removed: yes. Door open/sign placed on door: yes. Family/friend cm6 present: no. Sitter present: Yes. 06:18 Safety checks: Items removed: yes. Door open/sign placed on door: yes. Family/friend cm6 present: no. Sitter present: Yes. 06:33 Safety checks: Items removed: yes. Door open/sign placed on door: yes. Family/friend cm6 present: no. Sitter present: Yes. 06:48 Safety checks: Items removed: yes. Door open/sign placed on door: yes. Family/friend cm6 present: no. Sitter present: Yes. 06:55 CT Head Brain wo Cont In Process Unspecified. EDMS 07:00 Safety checks: Items removed: yes. Door open/sign placed on door: yes. Family/friend jb1 present: no. Sitter present: Yes. 07:15 Safety checks: Items removed: yes. Door open/sign placed on door: yes. Family/friend jb1 present: no. Sitter present: Yes. 07:44 Attending Physician role handed off by Dusty Sorenson MD kdr 07:44 Henry Nino MD is Attending Physician. kdr 08:29 No provider procedures requiring assistance completed. IV discontinued, intact, hj bleeding controlled, No redness/swelling at site. Pressure dressing applied. Administered Medications: 03:00 Drug: Lidocaine (1 %) 1 vials Volume: 5 ml; Route: Infiltration; aa1 06:59 Follow up: Response: No adverse reaction hj 03:32 Drug: NS 0.9% 1000 ml Route: IV; Rate: 1000 ml; Site: right antecubital; aa1 06:59 Follow up: IV Status: Completed infusion; IV Intake: 1000ml hj Intake: 06:59 IV: 1000ml; Total: 1000ml. hj Outcome: 08:17 Discharge ordered by . kdr 08:30 Discharged to home ambulatory. hj 08:30 Condition: stable 08:30 Discharge instructions given to patient, Instructed on discharge instructions, follow up and referral plans. medication usage, Demonstrated understanding of instructions, follow-up care, medications, Prescriptions given X 1. 08:31 Patient left the ED. hj Signatures: Dispatcher [employer] EDMS Hank Mix jb1 Tiffany Vu RN RN aa1 Henry Nino MD MD kdr Sanford, Demi ds1 Dusty Sorenson MD MD rn Krenek, Amber RN RN ak1 Klaus Grey RN Zeina Cowan cm6 Corrections: (The following items were deleted from the chart) 07:14 07:03 Safety checks: Items removed: yes. Door open/sign placed on door: yes. jb1 Family/friend present: no. Sitter present: Yes. cm6 07:15 07:14 Safety checks: Items removed: yes. Door open/sign placed on door: yes. jb1 Family/friend present: no. Sitter present: Yes. jb1
[2018-10-15 08:46] VITALS: BP 112/77; TEMP 97.6; O2SAT 97
--- NOTE | 2018-10-15 09:55 | EKG ---
Test Date: 2018-10-15 Test Time: 03:15:04 Nutritional Yeast Supervisor: JANNET MEASUREMENT RESULTS: Intervals: Rate: 84 VA: 144 QRSD: 78 QT: 352 QTc: 415 [place]: P: 28 VA: 144 QRS: -18 T: 61 INTERPRETIVE STATEMENTS: Normal sinus rhythm Normal ECG Compared to ECG 07/22/2018 01:17:53 No significant changes Electronically Signed On 10-15-18 09:54:12 CDT by Octavio Pearson
--- NOTE | 2018-10-15 11:05 | RAD REPORT ---
EXAM DESCRIPTION: Head Brain Wo Cont CLINICAL HISTORY: 63 years Male patient fell COMPARISON: CT head without contrast dated 09/30/2017 TECHNIQUE: Contiguous axial images of the brain were obtained without the administration of intraven ous contrast.This exam was performed according to our departmental dose-optimization program which in cludes use of Automated Exposure Control, adjustment of the mA and/or kV according to patient size an d/or use of iterative reconstruction technique. FINDINGS: Brain: No acute intracranial hemorrhage. No acute territorial infarct. No extra-axial neema ection. No mass effect or herniation. Prominence of the frontoparietal sulci. Confluent periventr icular and subcortical white matter hypodensity is noted. Mild intracranial vascular calcifications Ventricles: Allowing for underlying cerebral volume loss, ventricular size appears within normal limi ts.. Globes and orbits: No acute abnormality. Bones: No acute osseous finding. Paranasal sinuses: Scattered opacification of the ethmoidal air cells. Mastoid air cells: Well pneumatized.. Soft tissues: Laceration and associated swelling of the right supraorbital soft tissues and frontal m idline. IMPRESSION: No acute intracranial hemorrhage, hydrocephalus or herniation. Cerebral volume loss and chronic small vessel ischemic changes. Right supraorbital and frontal midline laceration/swelling. Electronically signed by: Gene Blake DO 10/15/2018 3:49 AM CDT Due to temporary technical issues with the PACS/Fluency reporting system, reports are being signed by the in house radiologist as a courtesy to ensure prompt reporting. The interpreting radiologist is f ully responsible for the content of the report.
== END 2018-10-15 08:31 | disposition home or self-care (01) ==
LOC: ER 01:50
PROC: 0JQ10ZZ Repair Face Subcutaneous Tissue and Fascia, Open Approach (ICD-10-PCS; principal; 2018-10-15)
DX: S01.81XA Laceration without foreign body of other part of head, initial encounter (principal); W01.198A Fall on same level from slipping, tripping and stumbling with subsequent striking against other object, initial encounter; Y93.9 Activity, unspecified; Y92.009 Unspecified place in unspecified non-institutional (private) residence as the place of occurrence of the external cause; Z88.2 Allergy status to sulfonamides; I10 Essential (primary) hypertension; F41.9 Anxiety disorder, unspecified; F32.9 Major depressive disorder, single episode, unspecified; F17.210 Nicotine dependence, cigarettes, uncomplicated
CPT/HCPCS: 36415; 70450; 80048; 80076; 80307; 80320; 80329; 81003; 85025; 93005; 96360; 96361; 99284

== ENCOUNTER 2018-12-13 18:07 | Emergency (ER) | payer OTHER ==
[2018-12-13] MEDS ORDERED: MORPHINE 4 MG/ML SYR ONE (18:43)
--- NOTE | 2018-12-13 19:16 | EDPHYS ---
Physician Documentation [facility] Name: Edilberto Zamorano Age: 63 yrs Sex: Male : 1955 Arrival Date: 12/13/2018 Time: 18:08 Bed 5 Private MD: ED Physician Dusty Sorenson HPI: 12/13 19:12 This 63 yrs old Male presents to ER via EMS with complaints of Foot Pain. nh 19:12 The patient presents with pain, that is chronic. The complaints affect the left leg and nh right leg. Context: resulted from an unknown cause, the patient can partially bear weight, the patient is able to ambulate, Problem is a result from a previous injury: No. Onset: The symptoms/episode began/occurred 3 week(s) ago. Modifying factors: The symptoms are alleviated by nothing. the symptoms are aggravated by nothing. Associated signs and symptoms: The patient has no apparent associated signs or symptoms. Severity of symptoms: At their worst the symptoms were moderate, just prior to arrival, in the emergency department the symptoms are unchanged. The patient has not experienced similar symptoms in the past. The patient has not recently seen a physician. Historical: - Allergies: 18:15 Sulfa (Sulfonamide Antibiotics); ss - Home Meds: 19:32 alprazolam 1 mg Oral tab 1 tab 3 times per day [Active]; amitriptyline 50 mg Oral tab 1 ak1 tab once daily [Active]; Lyrica 300 mg Oral 1 cap 2 times per day [Active]; pantoprazole 40 mg Oral TbEC 1 tab once daily [Active]; terazosin 2 mg Oral cap 1 cap once daily [Active]; tramadol 50 mg Oral tab 1 tab every 6 hours [Active]; trazodone 100 mg Oral tab 1 tab nightly [Active]; - PMHx: 18:15 Anxiety; Back pain; Depression; Hyperlipidemia; Hypertension; chronic foot pain; ss - PSHx: 18:15 Appendectomy; ss - Immunization history:: Adult Immunizations up to date. - Ebola Screening: : Patient denies exposure to infectious person Patient denies travel to an Ebola-affected area in the 21 days before illness onset. - Social history:: Smoking status: Patient/guardian denies using tobacco. ROS: 19:12 Constitutional: Negative for fever, chills, and weight loss, Eyes: Negative for injury, nh pain, redness, and discharge, ENT: Negative for injury, pain, and discharge, Neck: Negative for injury, pain, and swelling, Cardiovascular: Negative for chest pain, palpitations, and edema, Respiratory: Negative for shortness of breath, cough, wheezing, and pleuritic chest pain, Abdomen/GI: Negative for abdominal pain, nausea, vomiting, diarrhea, and constipation, Back: Negative for injury and pain, : Negative for injury, bleeding, discharge, and swelling, Skin: Negative for injury, rash, and discoloration, Neuro: Negative for headache, weakness, numbness, tingling, and seizure, Psych: Negative for depression, anxiety, suicide ideation, homicidal ideation, and hallucinations, Allergy/Immunology: Negative for hives, rash, and allergies. 19:12 MS/extremity: Positive for pain. Exam: 19:12 Constitutional: This is a well developed, well nourished patient who is awake, alert, nh and in no acute distress. Head/Face: Normocephalic, atraumatic. Eyes: Pupils equal round and reactive to light, extra-ocular motions intact. Lids and lashes normal. Conjunctiva and sclera are non-icteric and not injected. Cornea within normal limits. Periorbital areas with no swelling, redness, or edema. ENT: Nares patent. No nasal discharge, no septal abnormalities noted. Tympanic membranes are normal and external auditory canals are clear. Oropharynx with no redness, swelling, or masses, exudates, or evidence of obstruction, uvula midline. Mucous membranes moist. Neck: Trachea midline, no thyromegaly or masses palpated, and no cervical lymphadenopathy. Supple, full range of motion without nuchal rigidity, or vertebral point tenderness. No Meningismus. Chest/axilla: Normal chest wall appearance and motion. Nontender with no deformity. No lesions are appreciated. Cardiovascular: Regular rate and rhythm with a normal S1 and S2. No gallops, murmurs, or rubs. Normal PMI, no JVD. No pulse deficits. Respiratory: Lungs have equal breath sounds bilaterally, clear to auscultation and percussion. No rales, rhonchi or wheezes noted. No increased work of breathing, no retractions or nasal flaring. Abdomen/GI: Soft, non-tender, with normal bowel sounds. No distension or tympany. No guarding or rebound. No evidence of tenderness throughout. Back: No spinal tenderness. No costovertebral tenderness. Full range of motion. Skin: Warm, dry with normal turgor. Normal color with no rashes, no lesions, and no evidence of cellulitis. MS/ Extremity: Pulses equal, no cyanosis. Neurovascular intact. Full, normal range of motion. Neuro: Awake and alert, GCS 15, oriented to person, place, time, and situation. Cranial nerves II-XII grossly intact. Motor strength 5/5 in all extremities. Sensory grossly intact. Cerebellar exam normal. Normal gait. Vital Signs: 18:11 BP 135 / 92; Pulse 121; Resp 19; Temp 98.2(TE); Pulse Ox 100% on R/A; Weight 61.69 kg; ss Height 5 ft. 4 in. (162.56 cm); Pain 10/10; 19:00 BP 123 / 72; Pulse 102; Resp 18; Pulse Ox 98% on R/A; ph 19:32 BP 127 / 79; Pulse 97; Resp 18; Temp 98.2; Pulse Ox 98% on R/A; ak1 18:11 Body Mass Index 23.34 (61.69 kg, 162.56 cm) ss MDM: 18:24 Patient medically screened. nh 19:12 Data reviewed: vital signs, nurses notes, I have discussed the patient's nh presentation/case with the attending Emergency Department Physician; and as a result, I will discharge patient. Counseling: I had a detailed discussion with the patient and/or guardian regarding: the historical points, exam findings, and any diagnostic results supporting the discharge/admit diagnosis, the need for outpatient follow up, to return to the emergency department if symptoms worsen or persist or if there are any questions or concerns that arise at home. Administered Medications: 18:51 Drug: morphine 4 mg Route: IM; Site: right deltoid; ph 19:01 Follow up: Response: No adverse reaction ph 19:01 Follow up: Response: RASS: Drowsy (-1) ph Disposition: 12/14 07:37 Co-signature as Attending Physician, Dusty Sorenson MD. rn Disposition: 12/13/18 19:14 Discharged to Home. Impression: Idiopathic peripheral autonomic neuropathy. - Condition is Stable. - Discharge Instructions: Neuropathic Pain. - Prescriptions for Neurontin 300 mg Oral Capsule - take 1 capsule by ORAL route every 8 hours; 30 capsule. - Medication Reconciliation Form, Thank You Letter, Antibiotic Education, Prescription Opioid Use form. - Follow up: Private Physician; When: 2 - 3 days; Reason: Recheck today's complaints. - Problem is new. - Symptoms are unchanged. Signatures: Taryn Burroughs, MEDICAL RESEARCH TECH MEDICAL RESEARCH TECH pr Dusty Sorenson MD MD rn Smirch, Shelby, RN RN Ronit Nunez RN RN ak1 Pooja Ríos RN RN ph Corrections: (The following items were deleted from the chart) 12/13 19:40 19:14 12/13/2018 19:14 Discharged to Home. Impression: Idiopathic peripheral autonomic ak1 neuropathy. Condition is Stable. Forms are Medication Reconciliation Form, Thank You Letter, Antibiotic Education, Prescription Opioid Use. Follow up: Private Physician; When: 2 - 3 days; Reason: Recheck today's complaints. Problem is new. Symptoms are unchanged. nh
--- NOTE | 2018-12-13 19:16 | ER ---
Nurse's Notes [facility] Name: Edilberto Zamorano Age: 63 yrs Sex: Male : 1955 Arrival Date: 12/13/2018 Time: 18:08 Bed 5 Private MD: Diagnosis: Idiopathic peripheral autonomic neuropathy Presentation: 12/13 18:12 Presenting complaint: Patient states: bilateral foot pain for "a long time". Patient ss reports for the last 3 weeks it has been much worse. Patient has seen PCP and was given medications, but reports they are not helping and he has not had transportation to be able to have his ultrasound and blood work that PCP ordered. Transition of care: patient was not received from another setting of care. Onset of symptoms is unknown. Risk Assessment: Do you want to hurt yourself or someone else? Patient reports no desire to harm self or others. Initial Sepsis Screen: Does the patient meet any 2 criteria? HR > 90 bpm. Does the patient have a suspected source of infection? No. Patient's initial sepsis screen is negative. Care prior to arrival: Glucose check: 127. 18:12 Acuity: JUSTYN 3 ss 18:12 Method Of Arrival: EMS: [facility] ss Triage Assessment: 19:33 General: Appears in no apparent distress. Behavior is calm. ak1 Historical: - Allergies: 18:15 Sulfa (Sulfonamide Antibiotics); ss - Home Meds: 19:32 alprazolam 1 mg Oral tab 1 tab 3 times per day [Active]; amitriptyline 50 mg Oral tab 1 ak1 tab once daily [Active]; Lyrica 300 mg Oral 1 cap 2 times per day [Active]; pantoprazole 40 mg Oral TbEC 1 tab once daily [Active]; terazosin 2 mg Oral cap 1 cap once daily [Active]; tramadol 50 mg Oral tab 1 tab every 6 hours [Active]; trazodone 100 mg Oral tab 1 tab nightly [Active]; - PMHx: 18:15 Anxiety; Back pain; Depression; Hyperlipidemia; Hypertension; chronic foot pain; ss - PSHx: 18:15 Appendectomy; ss - Immunization history:: Adult Immunizations up to date. - Ebola Screening: : Patient denies exposure to infectious person Patient denies travel to an Ebola-affected area in the 21 days before illness onset. - Social history:: Smoking status: Patient/guardian denies using tobacco. Screenin:58 Abuse screen: Denies threats or abuse. Denies injuries from another. Nutritional ph screening: No deficits noted. Tuberculosis screening: No symptoms or risk factors identified. Fall Risk None identified. Assessment: 18:59 Pain: Complains of pain in right leg and left leg. Neuro: Level of Consciousness is ph awake, alert, obeys commands, Oriented to person, place, time, situation. Cardiovascular: Capillary refill < 3 seconds in bilateral fingers toes Patient's skin is warm and dry. Respiratory: Airway is patent Respiratory effort is even, unlabored, Respiratory pattern is regular, symmetrical. GI: No signs and/or symptoms were reported involving the gastrointestinal system. Derm: Skin is intact, Skin is pink, warm \\T\\ dry. Musculoskeletal: Circulation, motion, and sensation intact. Range of motion: intact in all extremities, Swelling absent. Vital Signs: 18:11 BP 135 / 92; Pulse 121; Resp 19; Temp 98.2(TE); Pulse Ox 100% on R/A; Weight 61.69 kg; ss Height 5 ft. 4 in. (162.56 cm); Pain 10/10; 19:00 BP 123 / 72; Pulse 102; Resp 18; Pulse Ox 98% on R/A; ph 19:32 BP 127 / 79; Pulse 97; Resp 18; Temp 98.2; Pulse Ox 98% on R/A; ak1 18:11 Body Mass Index 23.34 (61.69 kg, 162.56 cm) ED Course: 18:08 Patient arrived in ED. bp 18:11 Arm band placed on left wrist. ss 18:14 Triage completed. ss 18:24 Taryn Burroughs FNP is PHCP. nh 18:24 Dusty Sorenson MD is Attending Physician. nh 18:39 Pooja Ríos, MONICA is Primary Nurse. ph 18:58 Patient has correct armband on for positive identification. Bed in low position. Call ph light in reach. Side rails up X 1. Pulse ox on. NIBP on. Door closed. Noise minimized. Warm blanket given. 19:33 Patient did not have IV access during this emergency room visit. ak1 19:33 No provider procedures requiring assistance completed. ak1 Administered Medications: 18:51 Drug: morphine 4 mg Route: IM; Site: right deltoid; ph 19:01 Follow up: Response: No adverse reaction ph 19:01 Follow up: Response: RASS: Drowsy (-1) ph Outcome: 19:14 Discharge ordered by . ca 19:33 Discharged to home with family. ak1 19:33 Condition: good 19:33 Discharge instructions given to patient, family, Instructed on discharge instructions, follow up and referral plans. no drinking with medication, no driving heavy equipment, medication usage, Demonstrated understanding of instructions, follow-up care, medications, Prescriptions given X 1. 19:40 Patient left the ED. ak1 Signatures: Taryn Burroughs, ECOSYSTEM ECOLOGY PROFESSOR ECOSYSTEM ECOLOGY PROFESSOR ca Treasure Gonzalez RN RN Ronit Nunez RN RN ak1 Pooja Ríos RN RN Omari Odom RN RN bp
[2018-12-13 23:30] VITALS: TEMP 98.2
[2018-12-13 23:32] VITALS: O2SAT 98
[2018-12-13 23:33] VITALS: BP 127/79
== END 2018-12-13 19:40 | disposition home or self-care (01) ==
LOC: ER 18:07
DX: G90.09 Other idiopathic peripheral autonomic neuropathy (principal); I10 Essential (primary) hypertension; E78.5 Hyperlipidemia, unspecified; F41.8 Other specified anxiety disorders; Z88.2 Allergy status to sulfonamides
CPT/HCPCS: 96372; 99284

== ENCOUNTER 2018-12-15 11:05 | Emergency (ER) | payer OTHER ==
[2018-12-15] MEDS ORDERED: NA CHLORIDE 0.9% 1,000 ML ONE (11:34)
[2018-12-15] MEDS ORDERED: KETOROLAC 30 MG/ML INJ ONE (11:34)
[2018-12-15] MEDS ORDERED: DIPHENHYDRAMINE 50 MG/ML VIAL ONE (11:34)
[2018-12-15 11:39] LABS: Absolute Lymphocytes (CBC) 2.8 K/uL (0.7-4.9); Basophils % 1.2 % (0-1.3); Hematocrit 40.7 % (39.6-49.0); Lymphocytes % 38.6 % (15.3-44.8); MPV 9.5 fL (7.6-11.3); RBC Red Blood Cell Count 4.36 M/uL (4.33-5.43)
[2018-12-15 11:55] LABS: C-Reactive Protein 3.61 mg/L (<3.00); Potassium 3.6 mmol/L (3.5-5.1)
--- NOTE | 2018-12-15 12:19 | RAD REPORT ---
EXAM DESCRIPTION: US - Lower Extremity Arterial Bilat - 12/15/2018 12:06 pm CLINICAL HISTORY: Bilateral leg pain COMPARISON: None. TECHNIQUE: Waveforms were obtained along the length of each lower extremity. Visual inspection of th e arterial tree performed. FINDINGS: Atherosclerotic changes are present mild in severity along the hawk of the bilateral lowe r extremity arterial tree. There is no occlusion or focal flow restricting lesion identified. Normal triphasic waveform pattern seen throughout the right lower extremity arterial tree. Triphasic wavefor m is seen in the left lower extremity with the exception of the dorsalis pedis artery was monophasic. No suspicious waveform or velocity value. IMPRESSION: Mild atherosclerotic changes along the hawk of the lower extremity arterial tree. No oc clusion or focal flow restricting lesion identified.
--- NOTE | 2018-12-15 13:37 | EDPHYS ---
Physician Documentation [facility] Name: Edilberto Zamorano Age: 63 yrs Sex: Male : 1955 Arrival Date: 12/15/2018 Time: 11:06 Bed 16 Private MD: ED Physician Henry Nino HPI: 12/15 11:25 This 63 yrs old Male presents to ER via EMS with complaints of Leg Pain. kdr 11:25 The patient presents with pain, that is acute. The complaints affect the lateral aspect kdr of left calf, left lateral ankle, lateral aspect of left foot, left calf, left Achilles, left heel, medial aspect of left calf, left medial ankle, medial aspect of left foot, left ordonez, anterior aspect of left ankle and dorsum of left foot, lateral aspect of right calf, right ankle, lateral aspect of right foot, right calf, right Achilles, right heel, medial aspect of right calf, medial aspect of right foot, right ordonez, anterior aspect of right ankle and dorsum of right foot. Context: The problem was sustained at home, resulted from an unknown cause, the patient is not able to ambulate, uses a walker, must have assistance, Problem is a result from a previous injury: No. Onset: The symptoms/episode began/occurred gradually, 1 week(s) ago. Modifying factors: The symptoms are alleviated by nothing. the symptoms are aggravated by movement, weight bearing. Associated signs and symptoms: Pertinent positives: fever, numbness, rash, swelling, tingling, vomiting, warmth, weakness. Treatment prior to arrival includes: over the counter medications, Neosporin. Severity of symptoms: At their worst the symptoms were severe, this morning, incapacitating, earlier today, in the emergency department the symptoms are actually worse, markedly. The patient has experienced a previous episode. The patient has been recently seen at the [facility] Emergency Department, yesterday. Historical: - Allergies: 11:10 Sulfa (Sulfonamide Antibiotics); la1 - PMHx: 11:10 Anxiety; Back pain; chronic foot pain; Depression; Hyperlipidemia; Hypertension; la1 - Immunization history:: Adult Immunizations up to date. - Social history:: Smoking status: unknown. - Ebola Screening: : No symptoms or risks identified at this time. ROS: 11:29 Constitutional: Negative for fever, chills, and weight loss, Eyes: Negative for injury, kdr pain, redness, and discharge, ENT: Negative for injury, pain, and discharge, Neck: Negative for injury, pain, and swelling, Cardiovascular: Negative for chest pain, palpitations, and edema, Respiratory: Negative for shortness of breath, cough, wheezing, and pleuritic chest pain, Abdomen/GI: Negative for abdominal pain, nausea, vomiting, diarrhea, and constipation, Back: Negative for injury and pain, : Negative for injury, bleeding, discharge, and swelling, Skin: Negative for injury, rash, and discoloration, Neuro: Negative for headache, weakness, numbness, tingling, and seizure activity. Psych: Negative for depression, anxiety, suicide ideation, homicidal ideation, and hallucinations, Allergy/Immunology: Negative for hives, rash, and allergies, Endocrine: Negative for neck swelling, polydipsia, polyuria, polyphagia, and marked weight changes, Hematologic/Lymphatic: Negative for swollen nodes, abnormal bleeding, and unusual bruising. 11:29 MS/extremity: Positive for pain, Negative for decreased range of motion, deformity, ecchymosis, erythema, laceration, paresthesias, puncture, rash, swelling, tenderness, tingling, warmth. Exam: 11:29 Constitutional: This is a well developed, well nourished patient who is awake, alert, kdr and in mild to moderate distress. Head/Face: Normocephalic, atraumatic. Eyes: Pupils equal round and reactive to light, extra-ocular motions intact. Lids and lashes normal. Conjunctiva and sclera are non-icteric and not injected. Cornea within normal limits. Periorbital areas with no swelling, redness, or edema. Neck: Trachea midline, no thyromegaly or masses palpated, and no cervical lymphadenopathy. Supple, full range of motion without nuchal rigidity, or vertebral point tenderness. No Meningismus. Chest/axilla: Normal chest wall appearance and motion. Nontender with no deformity. No lesions are appreciated. Cardiovascular: Regular rate and rhythm with a normal S1 and S2. No gallops, murmurs, or rubs. Normal PMI, no JVD. No pulse deficits. Respiratory: Lungs have equal breath sounds bilaterally, clear to auscultation and percussion. No rales, rhonchi or wheezes noted. No increased work of breathing, no retractions or nasal flaring. Abdomen/GI: Soft, non-tender, with normal bowel sounds. No distension or tympany. No guarding or rebound. No evidence of tenderness throughout. Back: No spinal tenderness. No costovertebral tenderness. Full range of motion. Skin: Warm, dry with normal turgor. Normal color with no rashes, no lesions, and no evidence of cellulitis. MS/ Extremity: Pulses equal, no cyanosis. Neurovascular intact. Full, normal range of motion. Neuro: Awake and alert, GCS 15, oriented to person, place, time, and situation. Cranial nerves II-XII grossly intact. Motor strength 5/5 in all extremities. Sensory grossly intact. Psych: Awake, alert, with orientation to person, place and time. The patainet is intermittently crying in bed Vital Signs: 11:10 BP 147 / 98; Pulse 104; Resp 16; Temp 97.4; Pulse Ox 100% on R/A; Weight 66.68 kg; la1 13:06 BP 144 / 74; Pulse 76; Resp 16; Pulse Ox 98% on R/A; la1 14:03 BP 128 / 92; Pulse 72; Resp 17; Temp 98.1(O); Pulse Ox 98% on R/A; mh5 MDM: 13:36 Patient medically screened. kdr 15:24 Data reviewed: vital signs, nurses notes, lab test result(s), radiologic studies. kdr Counseling: I had a detailed discussion with the patient and/or guardian regarding: the historical points, exam findings, and any diagnostic results supporting the discharge/admit diagnosis, lab results, radiology results, the need for outpatient follow up. 12/15 11:17 Order name: CBC with Diff; Complete Time: 12:22 kdr 12/15 11:17 Order name: Chem 7; Complete Time: 12:22 kdr 12/15 11:17 Order name: CRP; Complete Time: 12:22 kdr 12/15 11:17 Order name: ESR; Complete Time: 12:22 kdr 12/15 11:17 Order name: Lower Extremity Arterial Bilateral; Complete Time: 13:34 kdr Administered Medications: 11:38 Drug: TORadol - Ketorolac 15 mg Route: IVP; Site: left forearm; la1 12:28 Follow up: Response: No adverse reaction; Pain is decreased la1 11:38 Drug: Benadryl 25 mg Route: IVP; Site: left forearm; la1 12:28 Follow up: Response: No adverse reaction la1 11:38 Drug: NS 0.9% 1000 ml Route: IV; Rate: 1 bolus; Site: left forearm; la1 12:28 Follow up: IV Status: Completed infusion la1 Disposition: 12/15/18 13:36 Discharged to Home. Impression: Pain in left leg, Pain in right leg, Pain in right lower leg. - Condition is Stable. - Prescriptions for ketorolac 10 mg Oral tablet - take 1 tablet by ORAL route every 4-6 hours As needed not to exceed 40 mg in 24hrs; 15 tablet. Pepcid 20 mg Oral Tablet - take 1 tablet by ORAL route once daily; 20 tablet. - Medication Reconciliation Form, Thank You Letter form. - Follow up: Private Physician; When: 2 - 3 days; Reason: If symptoms return, Further diagnostic work-up, Recheck today's complaints, Continuance of care, Re-evaluation by your physician. - Problem is an ongoing problem. - Symptoms have improved. Signatures: Dispatcher [employer] EDMS Henry Nino MD MD [facility] Abraham Watts RN RN la1 Corrections: (The following items were deleted from the chart) 14:20 13:36 12/15/2018 13:36 Discharged to Home. Impression: Pain in left leg; Pain in right la1 leg; Pain in right lower leg. Condition is Stable. Forms are Medication Reconciliation Form, Thank You Letter, Antibiotic Education, Prescription Opioid Use. Follow up: Private Physician; When: 2 - 3 days; Reason: If symptoms return, Further diagnostic work-up, Recheck today's complaints, Continuance of care, Re-evaluation by your physician. Problem is an ongoing problem. Symptoms have improved. kdr
--- NOTE | 2018-12-15 13:37 | ER ---
Nurse's Notes [facility] Name: Edilberto Zamorano Age: 63 yrs Sex: Male : 1955 Arrival Date: 12/15/2018 Time: 11:06 Bed 16 Private MD: Diagnosis: Pain in left leg;Pain in right leg;Pain in right lower leg Presentation: 12/15 11:06 Presenting complaint: Patient states: I have been having numbness in both of my lower la1 legs for the last few weeks. For the last few days I have been in excruciating pain. They put me on lyrica but its not helping. Transition of care: patient was not received from another setting of care. Onset of symptoms was December 15, 2018. Risk Assessment: Do you want to hurt yourself or someone else? Patient reports no desire to harm self or others. Initial Sepsis Screen: Does the patient meet any 2 criteria? No. Patient's initial sepsis screen is negative. Does the patient have a suspected source of infection? No. Patient's initial sepsis screen is negative. Care prior to arrival: None. 11:06 Method Of Arrival: EMS: [facility] la1 11:06 Acuity: JUSTYN 3 la1 Historical: - Allergies: 11:10 Sulfa (Sulfonamide Antibiotics); la1 - PMHx: 11:10 Anxiety; Back pain; chronic foot pain; Depression; Hyperlipidemia; Hypertension; la1 - Immunization history:: Adult Immunizations up to date. - Social history:: Smoking status: unknown. - Ebola Screening: : No symptoms or risks identified at this time. Screenin:19 Abuse screen: Denies threats or abuse. Nutritional screening: No deficits noted. la1 Tuberculosis screening: No symptoms or risk factors identified. Fall Risk None identified. Assessment: 11:18 General: Appears uncomfortable, Behavior is anxious, crying. Pain: Complains of pain in la1 FABIENNE LE from ordonez down. Neuro: Level of Consciousness is awake, alert, obeys commands, Oriented to person, place, time, situation. Cardiovascular: Heart tones S1 S2 present Patient's skin is warm and dry. Respiratory: Airway is patent Respiratory effort is even, unlabored, Respiratory pattern is regular, symmetrical. GI: No signs and/or symptoms were reported involving the gastrointestinal system. : No signs and/or symptoms were reported regarding the genitourinary system. Musculoskeletal: Circulation, motion, and sensation intact. Capillary refill < 3 seconds, is brisk, in bilateral toes. Range of motion: intact in all extremities. Vital Signs: 11:10 BP 147 / 98; Pulse 104; Resp 16; Temp 97.4; Pulse Ox 100% on R/A; Weight 66.68 kg; la1 13:06 BP 144 / 74; Pulse 76; Resp 16; Pulse Ox 98% on R/A; la1 14:03 BP 128 / 92; Pulse 72; Resp 17; Temp 98.1(O); Pulse Ox 98% on R/A; mh5 ED Course: 11:06 Patient arrived in ED. la1 11:06 Henry Nino MD is Attending Physician. kdr 11:08 Triage completed. la1 11:10 Arm band placed on left wrist. la1 11:18 Abraham Watts, RN is Primary Nurse. la1 11:19 Patient has correct armband on for positive identification. Pulse ox on. NIBP on. la1 11:31 Inserted saline lock: 20 gauge in left forearm, using aseptic technique. Blood la1 collected. 11:57 US Lower Extremity Arterial Bilateral In Process Unspecified. EDMS 14:20 No provider procedures requiring assistance completed. IV discontinued, intact, la1 bleeding controlled, No redness/swelling at site. Pressure dressing applied. Administered Medications: 11:38 Drug: TORadol - Ketorolac 15 mg Route: IVP; Site: left forearm; la1 12:28 Follow up: Response: No adverse reaction; Pain is decreased la1 11:38 Drug: Benadryl 25 mg Route: IVP; Site: left forearm; la1 12:28 Follow up: Response: No adverse reaction la1 11:38 Drug: NS 0.9% 1000 ml Route: IV; Rate: 1 bolus; Site: left forearm; la1 12:28 Follow up: IV Status: Completed infusion la1 Outcome: 13:36 Discharge ordered by . kdr 14:20 Discharged to home ambulatory. la1 14:20 Condition: stable 14:20 Discharge instructions given to patient, Instructed on discharge instructions, follow up and referral plans. medication usage, Demonstrated understanding of instructions, follow-up care, medications, Prescriptions given X 2. 14:20 Patient left the ED. la1 Signatures: Dispatcher [employer] Henry Powers MD MD kdr Attema, Lee, RN RN Afia Holt [facility]
[2018-12-15 17:30] VITALS: O2SAT 98
[2018-12-15 17:32] VITALS: BP 128/92; TEMP 98.1
== END 2018-12-15 14:20 | disposition home or self-care (01) ==
LOC: ER 11:05
DX: M79.661 Pain in right lower leg (principal); M79.604 Pain in right leg; I10 Essential (primary) hypertension; Z88.2 Allergy status to sulfonamides
CPT/HCPCS: 96361; 85025; 80048; 36415; 85652; 86140; 93925; 96375; 96374; 99284; J7030

== ENCOUNTER 2019-01-13 18:42 | Emergency (ER) | payer OTHER ==
[2019-01-13] MEDS ORDERED: MORPHINE 4 MG/ML SYR ONE (19:09)
[2019-01-13] MEDS ORDERED: NA CHLORIDE 0.9% 1,000 ML ONE (19:09)
[2019-01-13] MEDS ORDERED: ONDANSETRON 4 MG/2 ML VIAL ONE (19:09)
[2019-01-13 19:19] LABS: Absolute Lymphocytes (CBC) 2.7 K/uL (0.7-4.9); Basophils % 0.5 % (0-1.3); Hematocrit 38.7 % (39.6-49.0); MPV 9.9 fL (7.6-11.3); RBC Red Blood Cell Count 4.16 M/uL (4.33-5.43)
[2019-01-13 19:33] LABS: ALT/SGPT 29 U/L (12-78); AST/SGOT 20 U/L (15-37); Albumin 3.9 g/dL (3.4-5.0); Alkaline Phosphatase 165 U/L (45-117); BUN Blood Urea Nitrogen 7 mg/dL (7-18); Bicarbonate 30 mmol/L (21-32); Bilirubin Direct < 0.1 mg/dL (0-0.2); Bilirubin Total 0.2 mg/dL (0.2-1.0); Glucose Level 88 mg/dL (74-106); Lipase 221 U/L (73-393); Potassium 4.1 mmol/L (3.5-5.1); Sodium Level 141 mmol/L (136-145)
--- NOTE | 2019-01-13 19:57 | RAD REPORT ---
EXAM DESCRIPTION: CT - Abdomen Pelvis W Contrast - 01/13/2019 7:47 pm CLINICAL HISTORY: ABD PAIN COMPARISON: CT 2009 TECHNIQUE: Biphasic, helical CT imaging of the abdomen and pelvis was performed following 100 ml non -ionic IV contrast. No oral contrast was given. All CT scans are performed using dose optimization technique as appropriate and may include automated exposure control or mA/KV adjustment according to patient size. FINDINGS: No suspicious findings in the lung bases. The liver, spleen, and pancreas show no suspicious findings. Gallbladder and biliary tree are also wi thout suspicious finding. Symmetric renal function is seen with no hydronephrosis or suspicious renal mass. No pyelonephritis o r acute parenchymal process. No bladder abnormalities. No adrenal abnormalities. No dilated bowel loops or bowel wall thickening. Moderately prominent stool volume is present through out the tortuous and redundant colon. Appendectomy clips are present. Moderately large stool volume d istends the rectum. No free air, free fluid or inflammatory stranding. No hernia, mass or bulky lymp hadenopathy. No suspicious bony findings. IMPRESSION: Contrast enhanced CT abdomen and pelvis showing no significant or suspicious finding.
[2019-01-13 20:42] LABS: Urine Blood NEGATIVE (NEG); Urine Glucose NEGATIVE (NEG); Urine Protein NEGATIVE (NEG); Urine Specific Gravity <1.005 (1.005-1.030); Urine pH 5.5 (5.0-7.0)
--- NOTE | 2019-01-13 20:48 | ER ---
Nurse's Notes [facility] Name: Edilberto Zamorano Age: 63 yrs Sex: Male : 1955 Arrival Date: 01/13/2019 Time: 18:50 Bed 15 Private MD: Diagnosis: Pain in left leg;Pain in right leg Presentation: 01/13 18:51 Presenting complaint: EMS states: chronic pain to bilateral feet and blood in urine ss that started this morning. Transition of care: patient was not received from another setting of care. Onset of symptoms is unknown. Risk Assessment: Do you want to hurt yourself or someone else? Patient reports no desire to harm self or others. Initial Sepsis Screen: Does the patient meet any 2 criteria? HR > 90 bpm. Does the patient have a suspected source of infection? No. Patient's initial sepsis screen is negative. Care prior to arrival: None. 18:51 Acuity: JUSTYN 3 ss 18:51 Method Of Arrival: EMS: [facility] ss Historical: - Allergies: 18:54 Sulfa (Sulfonamide Antibiotics); ss - PMHx: 18:54 Anxiety; Back pain; chronic foot pain; Depression; Hyperlipidemia; Hypertension; ss - Immunization history:: Adult Immunizations up to date. - Social history:: Smoking status: Patient uses tobacco products, smokes one-half pack cigarettes per day, Patient/guardian denies using alcohol, street drugs, The patient lives with family. - Ebola Screening: : Patient denies exposure to infectious person Patient denies travel to an Ebola-affected area in the 21 days before illness onset. - Family history:: not pertinent. - Hospitalizations: : No recent hospitalization is reported. Screenin:20 Abuse screen: Denies threats or abuse. Denies injuries from another. Nutritional ao screening: No deficits noted. Tuberculosis screening: No symptoms or risk factors identified. Fall Risk None identified. Assessment: 19:18 General: Appears in no apparent distress. comfortable, well groomed, well developed, ao well nourished, Behavior is calm, cooperative, appropriate for age. Pain: Complains of pain in right leg and left leg. Neuro: Level of Consciousness is awake, alert, obeys commands, Oriented to person, place, time, situation, Appropriate for age Moves all extremities. Full function Speech is normal, Facial symmetry appears normal. Cardiovascular: Reports None Denies chest pain, shortness of breath. Respiratory: Airway is patent Respiratory effort is even, unlabored, Respiratory pattern is regular, symmetrical. GI: Abdomen is non-distended. : No signs and/or symptoms were reported regarding the genitourinary system. EENT: No signs and/or symptoms were reported regarding the EENT system. Derm: No signs and/or symptoms reported regarding the dermatologic system. Skin is intact, is healthy with good turgor, Skin is pink, warm \T\ dry. normal, Skin temperature is warm. Musculoskeletal: Reports pain in right leg and left leg. Injury Description: Denies injury or trauma. 19:51 Reassessment: Patient appears in no apparent distress at this time. Patient and/or ao family updated on plan of care and expected duration. Pain level reassessed. Patient is alert, oriented x 3, equal unlabored respirations, skin warm/dry/pink. Patient back from CT. 21:07 Reassessment: DC instructions given to patient. Patient agree with the POC and to ao follow up with PCP. No questions at this moment. Vital Signs: 18:54 BP 137 / 81; Pulse 96; Resp 16; Temp 98.4(TE); Pulse Ox 100% on R/A; Pain 9/10; ss 19:51 BP 132 / 80; Pulse 92; Resp 18; Pulse Ox 100% ; ao ED Course: 18:50 Patient arrived in ED. ss 18:50 Thomas Monroy MD is Attending Physician. ma2 18:53 Omari Odom, RN is Primary Nurse. bp 18:53 Triage completed. ss 18:54 Arm band placed on right wrist. ss 18:58 Patient has correct armband on for positive identification. Bed in low position. Call mh5 light in reach. Side rails up X2. Warm blanket given. Pulse ox on. NIBP on. 19:16 Inserted saline lock: 20 gauge in right forearm, using aseptic technique. Blood ao collected. 19:48 CT completed. Patient tolerated procedure well. Patient moved to CT. Patient moved back nj from CT. 19:48 CT Abd/Pelvis - IV Contrast Only In Process Unspecified. EDMS Administered Medications: 19:15 Drug: morphine 4 mg Route: IVP; Site: right forearm; ao 20:43 Follow up: Response: No adverse reaction; RASS: Alert and Calm (0) ao 19:15 Drug: Zofran 4 mg Route: IVP; Site: right forearm; ao 20:42 Follow up: Response: No adverse reaction ao 19:16 Drug: NS 0.9% 1000 ml Route: IV; Rate: 1 bolus; Site: right forearm; ao Outcome: 20:47 Discharge ordered by MD. kidd 21:17 Patient left the ED. ao Signatures: Dispatcher [employer] EDTreasure Anderson RN RN ss Ortiz, Alex, RN RN ao Jordan, Nathan nj Martinez, Maria [facility] Omari Odom RN RN bp Alzahri, Mohammad, MD MD ma2
--- NOTE | 2019-01-13 20:48 | EDPHYS ---
Physician Documentation [facility] Name: Edilberto Zamorano Age: 63 yrs Sex: Male : 1955 Arrival Date: 01/13/2019 Time: 18:50 Bed 15 Private MD: ED Physician Thomas Monroy HPI: 01/13 18:54 This 63 yrs old Male presents to ER via EMS with complaints of Urinary ma2 Problem, Foot Pain. 18:54 The patient presents with abdominal pain. Onset: The symptoms/episode began/occurred ma2 gradually, 1 day(s) ago. The complaints affect the left foot, right foot. Onset: The symptoms/episode began/occurred gradually, 1 day(s) ago. Associated signs and symptoms: Pertinent negatives: fever, rash, tingling, vomiting. Associated signs and symptoms: Pertinent negatives: anorexia, constipation, dysuria, fever. Severity of symptoms: At their worst the symptoms were moderate, in the emergency department the symptoms are unchanged. The patient has experienced similar episodes in the past. Historical: - Allergies: 18:54 Sulfa (Sulfonamide Antibiotics); ss - PMHx: 18:54 Anxiety; Back pain; chronic foot pain; Depression; Hyperlipidemia; Hypertension; ss - Immunization history:: Adult Immunizations up to date. - Social history:: Smoking status: Patient uses tobacco products, smokes one-half pack cigarettes per day, Patient/guardian denies using alcohol, street drugs, The patient lives with family. - Ebola Screening: : Patient denies exposure to infectious person Patient denies travel to an Ebola-affected area in the 21 days before illness onset. - Family history:: not pertinent. - Hospitalizations: : No recent hospitalization is reported. ROS: 18:54 Eyes: Negative for injury, pain, redness, and discharge, Cardiovascular: Negative for ma2 chest pain, palpitations, and edema. 18:54 All other systems are negative. Exam: 18:54 Constitutional: This is a well developed, well nourished patient who is awake, alert, ma2 and in no acute distress. Head/Face: Normocephalic, atraumatic. Eyes: Pupils equal round and reactive to light, extra-ocular motions intact. Lids and lashes normal. Conjunctiva and sclera are non-icteric and not injected. Cornea within normal limits. Periorbital areas with no swelling, redness, or edema. ENT: Nares patent. No nasal discharge, no septal abnormalities noted. Tympanic membranes are normal and external auditory canals are clear. Oropharynx with no redness, swelling, or masses, exudates, or evidence of obstruction, uvula midline. Mucous membranes moist. Neck: Trachea midline, no thyromegaly or masses palpated, and no cervical lymphadenopathy. Supple, full range of motion without nuchal rigidity, or vertebral point tenderness. No Meningismus. Chest/axilla: Normal chest wall appearance and motion. Nontender with no deformity. No lesions are appreciated. Cardiovascular: Regular rate and rhythm with a normal S1 and S2. No gallops, murmurs, or rubs. Normal PMI, no JVD. No pulse deficits. Respiratory: Lungs have equal breath sounds bilaterally, clear to auscultation and percussion. No rales, rhonchi or wheezes noted. No increased work of breathing, no retractions or nasal flaring. Abdomen/GI: Soft, non-tender, with normal bowel sounds. No distension or tympany. No guarding or rebound. No evidence of tenderness throughout. Back: No spinal tenderness. No costovertebral tenderness. Full range of motion. Skin: Warm, dry with normal turgor. Normal color with no rashes, no lesions, and no evidence of cellulitis. MS/ Extremity: Pulses equal, no cyanosis. Neurovascular intact. Full, normal range of motion. Neuro: Awake and alert, GCS 15, oriented to person, place, time, and situation. Cranial nerves II-XII grossly intact. Motor strength 5/5 in all extremities. Sensory grossly intact. Cerebellar exam normal. Normal gait. Vital Signs: 18:54 BP 137 / 81; Pulse 96; Resp 16; Temp 98.4(TE); Pulse Ox 100% on R/A; Pain 9/10; ss 19:51 BP 132 / 80; Pulse 92; Resp 18; Pulse Ox 100% ; ao MDM: 18:50 Patient medically screened. ma2 18:54 Differential diagnosis: coronary artery disease, diverticulitis, gastritis, ma2 gastroesophageal reflux disease, Irritable bowel syndrome. 01/13 18:52 Order name: Basic Metabolic Panel; Complete Time: 19:47 ma2 01/13 18:52 Order name: CBC with Diff; Complete Time: 19:47 ma2 01/13 18:52 Order name: Creatinine for Radiology; Complete Time: 19:47 ma2 01/13 18:52 Order name: Hepatic Function; Complete Time: 19:47 ma2 01/13 18:52 Order name: Lipase; Complete Time: 19:47 ma2 01/13 20:32 Order name: Urine Dipstick--Ancillary (enter results); Complete Time: 20:46 mw2 01/13 18:52 Order name: IV Saline Lock; Complete Time: 19:16 ma2 01/13 18:52 Order name: Labs collected and sent; Complete Time: 19:16 ma2 01/13 18:52 Order name: Urine Dipstick-Ancillary (obtain specimen); Complete Time: 20:43 ma2 01/13 18:52 Order name: CT Abd/Pelvis - IV Contrast Only; Complete Time: 20:07 ma2 Administered Medications: 19:15 Drug: morphine 4 mg Route: IVP; Site: right forearm; ao 20:43 Follow up: Response: No adverse reaction; RASS: Alert and Calm (0) ao 19:15 Drug: Zofran 4 mg Route: IVP; Site: right forearm; ao 20:42 Follow up: Response: No adverse reaction ao 19:16 Drug: NS 0.9% 1000 ml Route: IV; Rate: 1 bolus; Site: right forearm; ao Disposition: 01/13/19 20:47 Discharged to Home. Impression: Pain in left leg, Pain in right leg. - Condition is Stable. - Discharge Instructions: Musculoskeletal Pain. - Prescriptions for Neurontin 300 mg Oral Capsule - take 1 capsule by ORAL route At bedtime; 20 capsule. - Medication Reconciliation Form, Thank You Letter, Antibiotic Education, Prescription Opioid Use form. - Follow up: Private Physician; When: Tomorrow; Reason: Continuance of care. Signatures: Dispatcher [employer] Treasure Underwood RN RN ss Ortiz, Alex, RN RN ao Alzahri, Mohammad, MD MD ma2 Corrections: (The following items were deleted from the chart) 20:43 18:52 Bladder Scanner ordered. ma2 ao 21:17 20:47 01/13/2019 20:47 Discharged to Home. Impression: Pain in left leg; Pain in right ao leg. Condition is Stable. Forms are Medication Reconciliation Form, Thank You Letter, Antibiotic Education, Prescription Opioid Use. Follow up: Private Physician; When: Tomorrow; Reason: Continuance of care. ma2
[2019-01-13 23:07] VITALS: TEMP 98.4; O2SAT 100
[2019-01-13 23:09] VITALS: BP 132/80
== END 2019-01-13 21:17 | disposition home or self-care (01) ==
LOC: ER 18:42
DX: M79.605 Pain in left leg (principal); M79.604 Pain in right leg; I10 Essential (primary) hypertension; F17.210 Nicotine dependence, cigarettes, uncomplicated; Z88.2 Allergy status to sulfonamides
CPT/HCPCS: 85025; 80048; 36415; 80076; 81003; 83690; 74177; Q9967; J7030; J2405; 96374; 96375; 99284